=== PATIENT | female | born 1955 | race Caucasian/White ===

== ENCOUNTER 2016-09-26 18:33 | Emergency (ER) | payer OTHER ==
[2016-09-26] MEDS ORDERED: Lidocaine 2% with EPINEPHrine 1:100,000 20 ML MDV ONE ×2 (18:43→19:29)
[2016-09-26 18:48] VITALS: BP 148/76
[2016-09-26] MEDS ORDERED: Bacitracin/Neomycin/Polymyxin B Oint 0.9 GM U/D Packet ONE (19:20)
--- NOTE | 2016-09-26 19:27 | EDM.PDOC ---
ED HPI GENERAL MEDICAL PROBLEM - General Chief Complaint: Laceration Stated Complaint: left leg laceration Time Seen by Provider: 09/26/16 19:00 Source of Information: Reports: Patient History Limitations: Reports: No Limitations - History of Present Illness INITIAL COMMENTS - FREE TEXT/NARRATIVE: The patient presents with a laceration to her left anterior connolly. She was out working in the yard and stepped on a tree branch that swung up and cut her left leg. She denies other injuries or complaints. She reports her tetanus vaccination is up to date. 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: Dressing(s) Left Anterior Leg Pain Score (Numeric/FACES): 4 - Related Data Allergies Allergy/AdvReac Type Severity Reaction Status Date / Time No Known Allergies Allergy Verified 09/26/16 18:35 Home Meds: Home Meds ASA/Butalbital/Caffeine/Codein [Fiorinal with Codeine #3] 1 cap PO ASDIRECTED PRN 09/26/16 [History] Amitriptyline HCl [Amitriptyline HCl] 50 mg PO BEDTIME 09/26/16 [History] Chlorthalidone [Chlorthalidone] 25 mg PO DAILY 09/26/16 [History] Cyclobenzaprine HCl [Cyclobenzaprine HCl] 10 mg PO BEDTIME PRN 09/26/16 [History ] Diclofenac Sodium [IJD: Diclofenac Sodium] 75 mg PO DAILY 09/26/16 [History] Lisinopril [Lisinopril] 10 mg PO DAILY 09/26/16 [History] Venlafaxine HCl [Venlafaxine ER] 75 mg PO DAILY 09/26/16 [History] traMADol HCl [Tramadol HCl] 50 mg PO Q6HR PRN 09/26/16 [History] Past Medical History Cardiovascular History: Reports: Hypertension Musculoskeletal History: Reports: Back Pain, Chronic Neurological History: Reports: Migraines Social & Family History - Tobacco Use Smoking Status *Q: Never Smoker - Recreational Drug Use Recreational Drug Use: No ED ROS GENERAL - Review of Systems Review Of Systems: See Below ED EXAM, SKIN/RASH Exam: See Below Exam Limited By: No Limitations General Appearance: Alert, WD/WN, No Apparent Distress Eye Exam: Bilateral Eye: EOMI, Normal Fundi, Normal Inspection, PERRL Ears: Normal External Exam, Normal Canal, Hearing Grossly Normal, Normal TMs Nose: Normal Inspection, Normal Mucosa, No Blood Throat/Mouth: Normal Inspection, Normal Lips, Normal Teeth, Normal Gums, Normal Oropharynx, Normal Voice, No Airway Compromise Head: Atraumatic, Normocephalic Neck: Normal Inspection, Supple, Non-Tender, Full Range of Motion. No: Lymphadenopathy (L), Lymphadenopathy (R), Tender Lateral, Tender Midline Respiratory/Chest: No Respiratory Distress, Lungs Clear, Normal Breath Sounds, No Accessory Muscle Use, Chest Non-Tender Cardiovascular: Normal Peripheral Pulses, Regular Rate, Rhythm, No Edema, No Gallop, No Murmur, No Rub Peripheral Pulses: 2+: Posterior Tibial (L), Posterior Tibial (R), Dorsalis Pedis (L), Dorsalis Pedis (R) GI/Abdominal: Normal Bowel Sounds, Soft, Non-Tender, No Organomegaly, No Distention Rectal (Female) Exam: Normal Exam, Normal Rectal Tone Extremities: Normal Inspection, Normal Range of Motion, Non-Tender, No Pedal Edema, Normal Capillary Refill Neurological: Alert, Oriented, CN II-XII Intact, Normal Cognition, Normal Gait, Normal Reflexes, No Motor/Sensory Deficits Psychiatric: Normal Affect, Normal Mood Skin: Warm, Dry, Intact, Normal Color, No Rash, Other (2.5 cm linear laceration of anterior left connolly down to the fatty dermal layer. No active bleeding or gross contamination. No damage to vessels or nerves. ) Lymphatic: No Adenopathy Course - Vital Signs Last Recorded V/S: Last Vital Signs Temp 36.5 C 09/26/16 18:47 Pulse 76 09/26/16 18:47 Resp 16 09/26/16 18:47 BP 148/76 H 09/26/16 18:47 Pulse Ox 98 09/26/16 18:47 - Orders/Labs/Meds Meds: Medications Discontinued Medications Generic Name Dose Route Start Last Admin Trade Name Ramirezq PRN Reason Stop Dose Admin Lidocaine/Epinephrine Confirm 09/26/16 18:43 09/26/16 19:10 Xylocaine 2% With Epinephrine 1:100,000 Administered 09/26/16 18:44 20 ml Dose Administration 20 ml .ROUTE .STK-MED ONE Neomycin/Polymyxin/Bacitracin Confirm 09/26/16 19:20 Triple Antibiotic Oint Administered 09/26/16 19:21 Dose 1 each .ROUTE .STK-MED ONE Departure - Departure Time of Disposition: 19:32 Disposition: Home, Self-Care 01 Condition: Good Clinical Impression: Laceration of left lower leg without complication Qualifiers: Encounter type: initial encounter Qualified Code(s): S81.812A - Laceration without foreign body, left lower leg, initial encounter - Discharge Information Instructions: Laceration Care, Adult, Sutured Wound Care Referrals: Santana Bella JOB COMPOSITOR [Primary Care Provider] - Forms: ED Department Discharge Additional Instructions: 1. Wound cleansed with Betadine and anesthetized with 30 gauge 1/2" needle with 2% epinephrine with 1:100,000 epinephrine to total 5 mL. 2. Suture closure performed with 4-0 Ethilon sutures in interrupted fashion. 3. Wound cleansed after closure and Triple Antibiotic ointment applied followed by Telfa and tape. 4. Wound to stay covered and dry for 24 hours, then may remove dressing and shower and clean with mild soap. 5. OTC ibuprofen 400-600 mg every 6 hours as needed for pain. 6. Follow up in 7 days in clinic for suture removal or sooner if increased redness, swelling, pain, or drainage. - Assessment/Plan Assessment:: Laceration of left anterior connolly, 2.5 cm. Plan: 1. Wound cleansed with Betadine and anesthetized with 30 gauge 1/2" needle with 2% epinephrine with 1:100,000 epinephrine to total 5 mL. 2. Suture closure performed with 4-0 Ethilon sutures in interrupted fashion. 3. Wound cleansed after closure and Triple Antibiotic ointment applied followed by Telfa and tape. 4. Wound to stay covered and dry for 24 hours, then may remove dressing and shower and clean with mild soap. 5. OTC ibuprofen 400-600 mg every 6 hours as needed for pain. 6. Follow up in 7 days in clinic for suture removal or sooner if increased redness, swelling, pain, or drainage.
== END 2016-09-26 19:45 | disposition home or self-care (01) ==
LOC: LL.ED 18:33
DX: S81.812A Laceration without foreign body, left lower leg, initial encounter (principal); I10 Essential (primary) hypertension; G43.909 Migraine, unspecified, not intractable, without status migrainosus; Z79.899 Other long term (current) drug therapy; W45.8XXA Other foreign body or object entering through skin, initial encounter; Y92.096 Garden or yard of other non-institutional residence as the place of occurrence of the external cause
CPT/HCPCS: 12001; 99282

== ENCOUNTER 2020-08-25 07:53 | Observation (INO) | payer BC, OTHER ==
[2020-08-25] MEDS ORDERED: Sodium Chloride 0.9% 10 ML Syringe FLUSH PRN ×3 (08:12→12:07)
[2020-08-25] MEDS ORDERED: Ticagrelor 90 MG Tab PO ONE (08:12)
[2020-08-25] MEDS ORDERED: Famotidine 20 MG/2 ML SDV IVPUSH ONE (08:12)
[2020-08-25] MEDS ORDERED: Aspirin 81 MG Tab.Chew CHEW ONE (08:12)
--- NOTE | 2020-08-25 08:12 | EDM.PDOC ---
ED HPI GENERAL MEDICAL PROBLEM - General Chief Complaint: Cardiovascular Problem Stated Complaint: syncopal episode Time Seen by Provider: 08/25/20 08:10 Source of Information: Reports: Patient, Old Records ([facility] chart/EMR) History Limitations: Reports: No Limitations - History of Present Illness INITIAL COMMENTS - FREE TEXT/NARRATIVE: The patient was brought to the emergency room via private automobile by her friend for evaluation of dizziness and near syncopal episode, which occurred at work at about 7 AM this morning. Note that the patient denies any fall, injury, etc. with episodes similar to recurrent near syncopal episodes in the past. The patient did have some 8/10 epigastric and retrosternal chest pressure with no history of radiation, however associated with some diaphoresis and dizziness between 8:30 PM and 10:30 PM yesterday evening with no medications taken to this point. The patient did not take her morning medications. The patient denies any heart flutter, orthopnea, diaphoresis, paresthesias, recent decreased exercise tolerance, or any other anginal-type symptoms. She has had similar episodes during the last few weeks, however she denies any chest pain upon arrival to this facility. No recent history of other abdominal pain, nausea, diarrhea, melena, gross hematochezia, or any food intolerance, including fatty foods, etc. with 4 normal bowel movements during the last couple of days, including earlier this morning. She denies any gross hematuria, colic, or other UTI symptoms. The patient also denies any recent fever, cough, wheezing, dyspnea, etc.. No history of recent headaches, visual changes, diplopia, change in mental status, or other change in neurological status. Onset: Today, Sudden Onset Date: 08/24/20 Onset Time: 20:30 Duration: Intermittent, Resolved Prior to Arrival Location: Reports: Chest, Abdomen. Denies: Head, Face, Neck, Back, Pelvis, Upper Extremity, Left, Upper Extremity, Right, Radiates to Quality: Reports: Pressure, Same as Previous Episode Severity: Moderate Improves with: Reports: None Worsens with: Reports: None Context: Reports: Other (As above). Denies: Sick Contact, Trauma Associated Symptoms: Reports: Chest Pain, Diaphoresis, Syncope (Near syncope as above), Weakness (Generalized nonspecific). 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) Sternum Pain Score (Numeric/FACES): 3 - Related Data Allergies Allergy/AdvReac Type Severity Reaction Status Date / Time No Known Allergies Allergy Verified 08/25/20 07:55 Home Meds: Home Meds Chlorthalidone 25 mg PO DAILY 09/26/16 [History] Cyclobenzaprine HCl 10 mg PO BEDTIME PRN 09/26/16 [History] Lisinopril 10 mg PO DAILY@20 09/26/16 [History] Amitriptyline HCl 75 mg PO BEDTIME 08/25/20 [History] Codeine/Butalbital/ASA/Caffein [Ascomp with Codeine] 1 each PO DAILY PRN 08/25/20 [History] DULoxetine HCl [Cymbalta] 60 mg PO DAILY 08/25/20 [History] Past Medical History HEENT History: Reports: Allergic Rhinitis, Impaired Vision, Other (See Below). Denies: Cataract, Glaucoma, Hard of Hearing, Macular Degeneration, Otitis Media, Retinal Detachment, Sinusitis Other HEENT History: Torus palatinum. Cardiovascular History: Reports: Hypertension, Syncope, Other (See Below). Denies: Afib, Aneurysm, Arrhythmia, Blood Clots/VTE/DVT, CAD, Cardiomyopathy, Heart Failure, Heart Murmur, High Cholesterol, SD, PVD Other Cardiovascular History: Near syncopal episode since about 2017 with a total of 4 previous episodes and true syncopal episode in about 2018. Respiratory History: Reports: Asthma, Bronchitis, Recurrent. Denies: COPD, Intubation, Difficult, Intubation, Previous, PE, Pneumonia, Recurrent, Pneumothorax, Pulmonary Fibrosis, Sleep Apnea, TB Gastrointestinal History: Reports: Cholelithiasis, GERD. Denies: Celiac Disease, Chronic Constipation, Chronic Diarrhea, GI Bleed, Hepatitis, Hiatal Hernia, Inflammatory Bowel Disease, Irritable Bowel Syndrome, Jaundice, Pancreatitis, PUD Genitourinary History: Reports: None. 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 Denies: Endometriosis, Polycystic Ovaries, Spontaneous : 2 Para: 3 LMP (Approximate): Other (See Below) Other SALES PROFESSIONAL BILINGUAL History: Surgical menopause at age 51 secondary to dysfunctional uterine bleeding. Full term with initial with secondary to twins at 37 weeks gestation with second , otherwise no complications during pregnancies or deliveries. Musculoskeletal History: Reports: Arthritis, Back Pain, Chronic, Neck Pain, Chronic, Osteoarthritis. Denies: Amputation, Fracture, Gout, RA, SLE Neurological History: Reports: Headaches, Chronic, Migraines, Neuropathy, Peripheral. Denies: Cerebral Aneurysms, Concussion, CVA, Head Trauma, MS, Parkinson's, Seizure, TIA, Vertigo Psychiatric History: Reports: Anxiety, Depression. Denies: Abuse, Victim of, ADD, ADHD, Addiction, Psych Hospitalization(s), PTSD, Suicide Attempt, Suicidal Ideation Endocrine/Metabolic History: Reports: Obesity/BMI 30+. Denies: Diabetes, Gestational, Diabetes, Type I, Diabetes, Type II, Diabetes Mellitus, Type 3c, Hypothyroidism, IDDM Hematologic History: Reports: None. Denies: Anemia, Blood Transfusion(s), Iron Deficiency Immunologic History: Reports: None. Denies: AIDS, HIV, SLE Oncologic (Cancer) History: Reports: None. Denies: Basal Cell Carcinoma, Breast, Cervix, Colon, Hodgkin's Lymphoma, Leukemia, Lymphoma, Malignant Melanoma, Non-Hodgkin's Lymphoma, Ovarian, Squamous Cell Carcinoma, Uterine Dermatologic History: Reports: None. Denies: Eczema, Psoriasis - Infectious Disease History Infectious Disease History: Reports: Chicken Pox, Measles, Mumps, Novel Coronavirus (Covid infection in February 2020 with subsequent J & J immunization and June 2020.). Denies: C-Difficile, Meningitis, Mononucleosis, MRSA, Pertussis (Whooping Cough), Rheumatic Fever, Rubella, Scarlet Fever, Shingles, TB, VRE - Past Surgical History Head Surgeries/Procedures: Reports: None HEENT Surgical History: Reports: Oral Surgery, Other (See Below). Denies: Adenoidectomy, Cataract Surgery, Eye Surgery, Laser Surgery, LASIK, Myringotomy w Tube(s), Naso-Sinus Surgery, Tonsillectomy Other HEENT Surgeries/Procedures: Anita teeth extraction x4 in her 20s. Cardiovascular Surgical History: Reports: None. Denies: Varicose Respiratory Surgical History: Reports: None. Denies: Thoracentesis GI Surgical History: Reports: Cholecystectomy, Other (See Below). Denies: Appendectomy, Colonoscopy, EGD, Hernia, Abdominal, Hernia, Inguinal, Hernia Repair/Other Other GI Surgeries/Procedures: Laparoscopic cholecystectomy 1996. Female Surgical History: Reports: Section, Hysterectomy, Salpingo- Oophorectomy, Tubal Ligation, Other (See Below). Denies: D&C Other Female Surgeries/Procedures: Bilateral tubal ligation at age 39. Complete hysterectomy with bilateral salpingo-oophorectomy at age 51 secondary to dysfunctional uterine bleeding/fibroids. Full-term secondary to twins as above. Endocrine Surgical History: Reports: None. Denies: Thyroid Biopsy Neurological Surgical History: Reports: None. Denies: C-Spine, Discectomy, Laminectomy, Lumbar Spine, Sacral Spine, Spinal Fusion, Thoracic Spine, Vertebroplasty Musculoskeletal Surgical History: Reports: None. Denies: Arthroscopic Procedure, Carpal Tunnel, Ganglion Cyst, ORIF, Shoulder Surgery Oncologic Surgical History: Reports: None Dermatological Surgical History: Reports: None - Past Imaging History Past Imaging History: Reports: Mammogram (Last on 01/19/2019.). Denies: Cardiac Echo, Stress Testing Social & Family History - Family History HEENT: Reports: Cataract, Other (See Below). Denies: Glaucoma, Macular Degeneration, Retinal Detachment Other HEENT Family History: Mother with cataracts. Cardiac: Reports: Hypertension, Other (See Below). Denies: Afib, Aneurysm, Arrhythmia, Blood Clots/VTE/DVT, Bypass, CAD, Heart Failure, High Cholesterol, SD, PVD/COD, Syncope Other Cardiac Family History: Hypertension in parents. Respiratory: Reports: None. Denies: Asthma, COPD, PE, Pneumothorax, Sleep Apnea GI: Reports: None. Denies: Celiac Disease, Cholelithiasis, Colon Polyps, GERD, GI bleed, Inflammatory Bowel Disease, Irritable Bowel Syndrome, PUD : Reports: None. Denies: Renal Calculus, Renal Disease/Insufficiency OBGYN: Reports: None. Denies: Dysfunctional uterine bleeding, Endometriosis, Recurrent Spontaneous Musculoskeletal: Reports: None. Denies: Arthritis, Gout, Osteoarthritis, RA, SLE Neurological: Reports: Cerebral Aneurysms, CVA, Migraines, Other (See Below). Denies: Alzheimers Disease, Dementia, MS, Parkinson's, Seizure, TIA Other Neurological Family History: Mother with fatal organic brain syndrome at age 86. Father with fatal hemorrhagic CVA secondary to a cerebral aneurysm at age 43. Migraines headaches in sister. Psychiatric: Reports: None. Denies: Abuse, Victim of, ADD, ADHD, Anxiety, Depression, Psych Hospitalization(s), PTSD, Suicide Attempt Endocrine/Metabolic: Reports: Diabetes, type II, Other (See Below). Denies: Diabetes, Gestational, Diabetes, Type I, Diabetes Mellitus, Type 3c, Hypothyroidism, IDDM Other Endocrine/Metabolic Family History: Maternal grandmother and mother with AODM. Hematologic: Reports: None. Denies: Anemia, SLE Immunologic: Reports: None. Denies: AIDS, HIV, SLE Dermatologic: Reports: None. Denies: Eczema, Psoriasis Oncologic: Reports: None. Denies: Cervix, Colon, Hodgkin's Lymphoma, Leukemia, Lymphoma, Non-Hodgkin's Lymphoma, Ovarian, Skin, Uterine - Tobacco Use Tobacco Use Status *Q: Former Tobacco User Tobacco Use Within Last Twelve Months: No Years of Tobacco use: 16 Packs/Tins Daily: 0.5 Packs/Tins Daily Comment: Stop smoking in 1989, i.e., between ages 18 and 34. Used Tobacco, but Quit: Yes Smoking Cessation Information Provided To Patient: No Second Hand Smoke Exposure: No Second Hand Smoke Education Provided: No - Caffeine Use Caffeine Use: Reports: Coffee (1 cup/day), Soda (2 sodas per day). Denies: Energy Drinks, Tea - Alcohol Use Alcohol Use History: Yes Days Per Week of Alcohol Use: 3 Number of Drinks Per Day: 2 Number of Drinks Per Day Comment: Usually beer. No previous DWIs, problems with alcohol abuse, etc. Total Drinks Per Week: 6 Alcohol Use in Last Twelve Months: Yes - Recreational Drug Use Recreational Drug Use: No Drug Use in Last 12 Months: No Recreational Drug Type: Denies: Amphetamines (Speed), Cocaine, Heroin, Inhalants (Glues, Solvents, Aerosols), LSD (Acid), Marijuana/Hashish, Methamphetamine, Morphine, Oxycodone - Living Situation & Occupation Living situation: Reports: (1991, 3 children), with Family ( and son) Occupation: Employed ([employer]) ED ROS GENERAL - Review of Systems Review Of Systems: Comprehensive ROS is negative, except as noted in HPI. ED EXAM, GENERAL - Physical Exam Exam: See Below Exam Limited By: No Limitations General Appearance: Alert, WD/WN, No Apparent Distress Eye Exam: Bilateral Eye: EOMI, Normal Fundi, Normal Inspection (Patient is wearing glasses. No vertigo or nystagmus), PERRL Ears: Normal External Exam, Normal Canal, Hearing Grossly Normal, Normal TMs Nose: Normal Inspection, Normal Mucosa, No Blood Throat/Mouth: Normal Inspection, Normal Lips, Normal Teeth, Normal Gums, Normal Oropharynx, Normal Voice, No Airway Compromise, Other (1-2 cm torus palatinum). No: Dysphagia, Perioral Cyanosis Head: Atraumatic, Normocephalic. No: Facial Swelling, Facial Tenderness, Sinus Tenderness Neck: Normal Inspection, Supple, Non-Tender, Full Range of Motion. No: Carotid Bruit, Lymphadenopathy (L), Lymphadenopathy (R), Thyromegaly Respiratory/Chest: No Respiratory Distress, Lungs Clear, Normal Breath Sounds, No Accessory Muscle Use, Chest Non-Tender. No: Pleural Rub, Retractions Cardiovascular: Normal Peripheral Pulses, Regular Rate, Rhythm, No Edema, No Gallop, No JVD, No Murmur, No Rub. No: Gallop/S3, Gallop/S4, Friction Rub Peripheral Pulses: 2+: Radial (L), Radial (R), Dorsalis Pedis (L), Dorsalis Pedis (R) GI/Abdominal: Normal Bowel Sounds, Soft, Non-Tender, No Organomegaly, No Distention, No Abnormal Bruit, No Mass, Pelvis Stable, Other (Obese). No: Guarding (Female) Exam: Deferred Rectal (Female) Exam: Deferred Back Exam: Full Range of Motion, Muscle Spasm (Mild lumbar region bilaterally), Paraspinal Tenderness (Mild lumbar region bilaterally). No: CVA Tenderness (L), CVA Tenderness (R), Vertebral Tenderness Extremities: Normal Inspection, Normal Range of Motion, Non-Tender, No Pedal Edema, Normal Capillary Refill. No: Jerad's Sign Neurological: Alert, Oriented, CN II-XII Intact, Normal Cognition, Normal Gait, Normal Reflexes (Negative Babinski's), No Motor/Sensory Deficits, Other (Borderline orthostasis) Psychiatric: Normal Affect, Normal Mood Skin Exam: Warm, Dry, Intact, Normal Color, No Rash. No: Diaphoretic, Wound/Incision Lymphatic: No Adenopathy #1 Interpretation EKG Date: 08/25/20 Time: 08:31 Rhythm: NSR Rate (Beats/Min): 76 [place]: Normal P-Wave: Enlarged (Mild diffuse biphasic P waves) QRS: Normal (0.09 seconds) ST-T: Other (T wave inversion in lead V1 with nonspecific ST changes in V1V2) QT: Normal RI/PQ Interval: 0.17 seconds with pulmonary hypertension by EKG. Comparison: NA - No Prior EKG EKG Interpretation Comments: 1. Questionable anterior wall cardiac ischemia 2. Left atrial enlargement 3. Pulmonary hypertension by EKG Course - Vital Signs Last Recorded V/S: Last Vital Signs Temp 36.2 C 08/25/20 08:00 Pulse 77 08/25/20 10:14 Resp 18 08/25/20 10:14 BP 111/60 08/25/20 10:14 Pulse Ox 100 08/25/20 10:14 Vital Signs - 24 hr 08/25/20 08/25/20 08/25/20 07:56 08:00 08:05 Temperature [ 36.2 C 36.2 C Temporal] Pulse, 82 75 80 Peripheral [ Right Pulse Oximetry] Respiratory 15 16 18 Rate Blood Pressure 97/42 L 80/50 L 77/43 L [Left Upper Arm ] O2 Sat by Pulse 99 95 96 Oximetry 08/25/20 08/25/20 08/25/20 08:15 08:30 08:45 Temperature [ Temporal] Pulse, 77 78 80 Peripheral [ Right Pulse Oximetry] Respiratory 16 16 17 Rate Blood Pressure 92/62 94/60 86/50 L [Left Upper Arm ] O2 Sat by Pulse 99 99 99 Oximetry 08/25/20 08/25/20 08/25/20 09:00 09:15 09:30 Temperature [ Temporal] Pulse, 80 84 78 Peripheral [ Right Pulse Oximetry] Respiratory 19 18 17 Rate Blood Pressure 106/64 110/72 106/55 L [Left Upper Arm ] O2 Sat by Pulse 100 100 100 Oximetry 08/25/20 08/25/20 09:45 10:14 Temperature [ Temporal] Pulse, 78 77 Peripheral [ Right Pulse Oximetry] Respiratory 16 18 Rate Blood Pressure 112/66 111/60 [Left Upper Arm ] O2 Sat by Pulse 99 100 Oximetry - Orders/Labs/Meds Orders: Active Orders 24 hr Category Date Time Status Cardiac Monitoring [RC] . DIRECTED Care 08/25/20 08:12 Active EKG Documentation Completion [RC] ASDIRECTED Care 08/25/20 08:12 Active Oxygen Therapy, ED [RC] PRN Care 08/25/20 08:12 Active Peripheral IV Care [RC] . DIRECTED Care 08/25/20 08:12 Active Peripheral IV Care [RC] . DIRECTED Care 08/25/20 08:17 Active Pulse Oximetry [RC] CONTINUOUS Care 08/25/20 08:12 Active Up With Assistance [RC] PFP Care 08/25/20 08:12 Active Vital Signs [RC] PFP Care 08/25/20 08:12 Active Nothing per Oral Now Diet [DIET] Diet 08/25/20 Breakfast Active Chest 1V Frontal [CR] Stat Exams 08/25/20 08:12 Taken Chest PE [Ang Chest] [CT] Stat Exams 08/25/20 09:00 Taken CULTURE BLOOD [BC] Stat Lab 08/25/20 08:01 Received CULTURE BLOOD [BC] Stat Lab 08/25/20 09:01 Received Iopamidol [[id number] (76%)] Med 08/25/20 13:00 Once 100 ml IVPUSH ONETIME ONE Lactated Ringers [Ringers, Lactated] 1,000 ml Med 08/25/20 09:15 Active IV .BOLUS Sodium Chloride 0.9% [Saline Flush] Med 08/25/20 08:12 Active 10 ml FLUSH ASDIRECTED PRN Sodium Chloride 0.9% [Saline Flush] Med 08/25/20 08:17 Active 10 ml FLUSH ASDIRECTED PRN Blood Culture x2 Reflex Set [OM.PC] Urgent Oth 08/25/20 09:01 Ordered Obtain Past Medical Record [OM.PC] Urgent Oth 08/25/20 08:12 Active Peripheral IV Insertion Adult [OM.PC] Routine Oth 08/25/20 08:17 Ordered Peripheral IV Insertion Adult [OM.PC] Stat Oth 08/25/20 08:12 Ordered Resuscitation Status Stat Resus Stat 08/25/20 08:12 Ordered Medication Orders Lactated Ringer's (Ringers, Lactated) 1,000 mls @ 100 mls/hr IV .BOLUS ONE Stop: 08/25/20 19:14 Last Admin: 08/25/20 09:24 Dose: 100 mls/hr Documented by: KETAN Iopamidol (Iopamidol 755 Mg/Ml 100 Ml Bottle) 100 ml IVPUSH ONETIME ONE Stop: 08/25/20 13:01 Last Admin: 08/25/20 09:25 Dose: 100 ml Documented by: MAGUI Sodium Chloride (Sodium Chloride 0.9% 10 Ml Syringe) 10 ml FLUSH ASDIRECTED PRN PRN Reason: Keep Vein Open Last Admin: 08/25/20 08:35 Dose: 10 ml Documented by: KETAN Sodium Chloride (Sodium Chloride 0.9% 10 Ml Syringe) 10 ml FLUSH ASDIRECTED PRN PRN Reason: Keep Vein Open Labs: Laboratory Tests 08/25/20 08/25/20 08/25/20 Range/Units 07:54 07:54 07:54 WBC 9.7 (4.0-10.2) K/uL RBC 4.93 (3.77-5.09) M/uL Hgb 15.6 H (11.7-15.5) g/dL Hct 43.7 (34.0-46.0) % MCV 88.6 D (84.0-98.0) fL MCH 31.6 (28.2-33.3) pg MCHC 35.7 (31.7-36.0) g/dL RDW 12.5 (11.2-14.1) % Plt Count 226 (150-350) K/uL Neut % (Auto) 68.9 (45.0-80.0) % Lymph % (Auto) 20.8 (10.0-50.0) % [place] % (Auto) 7.3 (2.0-14.0) % Eos % (Auto) 2.4 (0.0-5.0) % Baso % (Auto) 0.6 (0.0-2.0) % Neut # (Auto) 6.65 (1.40-7.00) K/uL Lymph # (Auto) 2.01 (0.50-3.50) K/uL [place] # (Auto) 0.71 (0.00-1.00) K/uL Eos # (Auto) 0.23 (0.00-0.50) K/uL Baso # (Auto) 0.06 (0.00-0.20) K/uL PT 10.0 (9.5-12.0) SEC INR 1.0 APTT 20.3 L (24.5-32.8) SEC D-Dimer, Quantitative > 5000 H (0-400) ng/mL Sodium (136-145) mmol/L Potassium (3.5-5.1) mmol/L Chloride (98-107) mmol/L Carbon Dioxide (21.0-32.0) mmol/L BUN (7-18) mg/dL Creatinine (0.51-1.17) mg/dL Est Cr Clr Drug Dosing Estimated GFR (MDRD) mL/min Glucose (70-99) mg/dL Lactic Acid (0.4-2.0) mmol/L Uric Acid (2.6-7.2) mg/dL Calcium (8.5-10.1) mg/dL Magnesium (1.8-2.4) mg/dL Total Bilirubin (0.2-1.0) mg/dL AST (15-37) U/L ALT (12-78) U/L Alkaline Phosphatase (46-116) IU/L Creatine Kinase (26-308) U/L Creatine Kinase Index (0.0-2.5) % CK-MB (CK-2) (0.00-3.60) ng/mL Troponin I (0.000-0.056) ng/mL NT-Pro-B Natriuret Pep (0-125) pg/mL Total Protein (6.4-8.2) g/dL Albumin (3.4-5.0) g/dL TSH, Ultra Sensitive (0.358-3.740) mIU/mL SARS-CoV-2 RNA (STEVO) (NEGATIVE) 08/25/20 08/25/20 08/25/20 Range/Units 07:54 07:54 09:30 WBC (4.0-10.2) K/uL RBC (3.77-5.09) M/uL Hgb (11.7-15.5) g/dL Hct (34.0-46.0) % MCV (84.0-98.0) fL MCH (28.2-33.3) pg MCHC (31.7-36.0) g/dL RDW (11.2-14.1) % Plt Count (150-350) K/uL Neut % (Auto) (45.0-80.0) % Lymph % (Auto) (10.0-50.0) % [place] % (Auto) (2.0-14.0) % Eos % (Auto) (0.0-5.0) % Baso % (Auto) (0.0-2.0) % Neut # (Auto) (1.40-7.00) K/uL Lymph # (Auto) (0.50-3.50) K/uL [place] # (Auto) (0.00-1.00) K/uL Eos # (Auto) (0.00-0.50) K/uL Baso # (Auto) (0.00-0.20) K/uL PT (9.5-12.0) SEC INR APTT (24.5-32.8) SEC D-Dimer, Quantitative (0-400) ng/mL Sodium 139 (136-145) mmol/L Potassium 3.0 L (3.5-5.1) mmol/L Chloride 99 (98-107) mmol/L Carbon Dioxide 27.9 (21.0-32.0) mmol/L BUN 22 H (7-18) mg/dL Creatinine 1.09 (0.51-1.17) mg/dL Est Cr Clr Drug Dosing TNP Estimated GFR (MDRD) 51 mL/min Glucose 142 H (70-99) mg/dL Lactic Acid 3.1 H (0.4-2.0) mmol/L Uric Acid 7.1 (2.6-7.2) mg/dL Calcium 9.4 (8.5-10.1) mg/dL Magnesium 1.8 (1.8-2.4) mg/dL Total Bilirubin 0.8 (0.2-1.0) mg/dL AST 83 H (15-37) U/L ALT 82 H (12-78) U/L Alkaline Phosphatase 101 (46-116) IU/L Creatine Kinase 139 (26-308) U/L Creatine Kinase Index 1.2 (0.0-2.5) % CK-MB (CK-2) 1.60 (0.00-3.60) ng/mL Troponin I 0.000 (0.000-0.056) ng/mL NT-Pro-B Natriuret Pep 110 (0-125) pg/mL Total Protein 7.5 (6.4-8.2) g/dL Albumin 4.1 (3.4-5.0) g/dL TSH, Ultra Sensitive 5.228 H (0.358-3.740) mIU/mL SARS-CoV-2 RNA (STEVO) Negative (NEGATIVE) Meds: Medications Generic Name Dose Route Start Last Admin Trade Name Ramirezq PRN Reason Stop Dose Admin Lactated Ringer's 1,000 mls @ 100 mls/hr 08/25/20 09:15 08/25/20 09:24 Ringers, Lactated IV 08/25/20 19:14 100 mls/hr .BOLUS ONE Administration Iopamidol 100 ml 08/25/20 13:00 08/25/20 09:25 Iopamidol 755 Mg/Ml 100 Ml Bottle IVPUSH 08/25/20 13:01 100 ml ONETIME ONE Administration Sodium Chloride 10 ml 08/25/20 08:12 08/25/20 08:35 Sodium Chloride 0.9% 10 Ml Syringe FLUSH 10 ml ASDIRECTED PRN Administration Keep Vein Open Sodium Chloride 10 ml 08/25/20 08:17 Sodium Chloride 0.9% 10 Ml Syringe FLUSH ASDIRECTED PRN Keep Vein Open Discontinued Medications Generic Name Dose Route Start Last Admin Trade Name Ramirezq PRN Reason Stop Dose Admin Aspirin 324 mg 08/25/20 08:12 08/25/20 08:28 Aspirin 81 Mg Tab.Chew CHEW 08/25/20 08:13 324 mg ONETIME ONE Administration Ceftriaxone Sodium 2 gm 08/25/20 09:02 08/25/20 09:09 Ceftriaxone 2 Gm Vial IVPUSH 08/25/20 09:03 2 gm ONETIME ONE Administration Famotidine 40 mg 08/25/20 08:12 08/25/20 08:29 Famotidine 20 Mg/2 Ml Sdv IVPUSH 08/25/20 08:13 40 mg ONETIME ONE Administration Sodium Chloride 1,000 mls @ 999 mls/hr 08/25/20 08:14 08/25/20 08:10 Normal Saline IV 08/25/20 09:14 999 mls/hr .BOLUS ONE Administration Lactated Ringer's 1,000 mls @ 999 mls/hr 08/25/20 08:45 08/25/20 08:53 Ringers, Lactated IV 08/25/20 09:45 999 mls/hr .BOLUS ONE Administration Lactated Ringer's 1,000 mls @ 999 mls/hr 08/25/20 08:46 08/25/20 08:54 Ringers, Lactated IV 08/25/20 09:46 999 mls/hr .BOLUS ONE Administration Lactated Ringer's 1,000 mls @ 999 mls/hr 08/25/20 09:15 08/25/20 09:26 Ringers, Lactated IV 08/25/20 10:15 Not Given .BOLUS ONE Iopamidol Confirm 08/25/20 09:14 Iopamidol 755 Mg/Ml 100 Ml Bottle Administered 08/25/20 09:15 Dose 100 ml .ROUTE .STK-MED ONE Potassium Chloride 40 meq 08/25/20 08:46 08/25/20 08:55 Potassium Chloride 20 Meq Tab.Er PO 08/25/20 08:47 40 meq ONETIME ONE Administration Ticagrelor 180 mg 08/25/20 08:12 08/25/20 08:28 Ticagrelor 90 Mg Tab PO 08/25/20 08:13 180 mg ONETIME ONE Administration - Radiology Interpretation Free Text/Narrative:: healthcare network pricing consultant shows normal sinus rhythm in the 70s80s with no ectopy or ar rhythmia. Chest x-ray, portable, shows mild to moderate pulmonary obstructive disease with no cardiomegaly, CHF, pulmonary infiltrates, pneumothorax, etc. Telephone consultation at 10:07 AM with the radiology department at [facility]. Preliminary verbal report of CTA of the chest using PE protocol was negative for PE with incidental finding of mild common bile duct dilatation likely secondary to her previous laparoscopic cholecystectomy. CT Results Date: 08/25/20 CT Results Time: 10:07 Departure - Departure Time of Disposition: 11:15 Disposition: Refer to Observation Condition: Fair Clinical Impression: D-dimer, elevated, Hypokalemia, Mixed anxiety depressive disorder, Peptic reflux disease, Elevated LFTs, Near syncope Hypotension Qualifiers: Hypotension type: other hypotension type Qualified Code(s): I95.89 - Other hypotension Chest pain Qualifiers: Chest pain type: precordial pain Qualified Code(s): R07.2 - Precordial pain Hypertension Qualifiers: Hypertension type: essential hypertension Qualified Code(s): I10 - Essential (primary) hypertension Osteoarthritis Qualifiers: Osteoarthritis location: multiple joints Osteoarthritis type: primary Qualified Code(s): M89.49 - Other hypertrophic osteoarthropathy, multiple sites Asthma Qualifiers: Asthma severity: mild Asthma persistence: intermittent Asthma complication type: uncomplicated Qualified Code(s): J45.20 - Mild intermittent asthma, uncomplicated Referrals: Henrietta Varela NP [Primary Care Provider] - Forms: ED Department Discharge Care Plan Goals: See plan Sepsis Event Note (ED) - Evaluation Sepsis Screening Result: No Definite Risk - Focused Exam Vital Signs: Vital Signs Temp Pulse Resp BP Pulse Ox 08/25/20 10:14 77 18 111/60 100 08/25/20 09:45 78 16 112/66 99 08/25/20 09:30 78 17 106/55 L 100 08/25/20 09:15 84 18 110/72 100 08/25/20 09:00 80 19 106/64 100 08/25/20 08:45 80 17 86/50 L 99 08/25/20 08:30 78 16 94/60 99 08/25/20 08:15 77 16 92/62 99 08/25/20 08:05 80 18 77/43 L 96 08/25/20 08:00 36.2 C 75 16 80/50 L 95 08/25/20 07:56 36.2 C 82 15 97/42 L 99 - Problem List & Annotations (1) Chest pain SNOMED Code(s): 42826058 Code(s): R07.9 - CHEST PAIN, UNSPECIFIED Status: Acute Priority: High Current Visit: Yes Onset Date: 08/25/20 Annotation/Comment:: Chest pain not present on patient's arrival to our emergency room with no recurrence during her initial care. Chest pain protocol was initiated immediately upon patient's arrival, however. Initiate standard rule out SD orders. Cardiology consultation depending on her clinical course. Echocardiogram is advisable secondary to her history of recurrent syncope. In addition, recommend activity restrictions at discharge and scheduling a Cardiolite stress test with me in this facility next week. Qualifiers: Chest pain type: precordial pain Qualified Code(s): R07.2 - Precordial pain (2) Near syncope SNOMED Code(s): 310848550 Code(s): R55 - SYNCOPE AND COLLAPSE Status: Acute Priority: High Current Visit: Yes Onset Date: 08/25/20 Annotation/Comment:: Note aggressive hydration required during her initial emergency room care. The ER nurse did initiate a normal saline 1 L IV bolus prior to my arrival to this facility with manual blood pressures required for patient care. Normal saline changed to lactated Ringer's as below. Secondary to persistent hypotension patient did require a second peripheral IV access with initial IV bolus of LR x2 with a total of 2000 mL of IV fluids given prior to decreasing her LR to 100 cc/h. (3) D-dimer, elevated SNOMED Code(s): 466422478 Code(s): R79.89 - OTHER SPECIFIED ABNORMAL FINDINGS OF BLOOD CHEMISTRY Status: Acute Priority: High Current Visit: Yes Onset Date: 08/25/20 Annotation/Comment:: CTA of the chest results as above. Apparently no evidence of dissecting thoracic aortic aneurysm, etc.. Note previous history of Covid infection as above. Initiate subcu Lovenox therapy at VTE dose. Ultrasound is not available in this facility until 08/28/2020. Consider echocardiogram with concomitant venous Doppler studies of the lower extremities on 08/29 after hospital discharge. (4) Hypotension SNOMED Code(s): 47898437 Code(s): I95.9 - HYPOTENSION, UNSPECIFIED Status: Acute Priority: High Current Visit: Yes Onset Date: 08/25/20 Annotation/Comment:: Significant hypotension with secondary near syncope as above. Aggressive IV hydration as ab ove. Manual blood pressure checks were required for accurate care. Qualifiers: Hypotension type: other hypotension type Qualified Code(s): I95.89 - Other hypotension (5) Asthma SNOMED Code(s): 342923514 Code(s): J45.909 - UNSPECIFIED ASTHMA, UNCOMPLICATED Status: Chronic Priority: Medium Current Visit: Yes Annotation/Comment:: No recent fever or bronchitic type symptoms. Note previous Covid infection in February 2020 with subsequent J&J immunization in July 2020. Patient did get an influenza booster this season. Qualifiers: Asthma severity: mild Asthma persistence: intermittent Asthma complication type: uncomplicated Qualified Code(s): J45.20 - Mild intermittent asthma, uncomplicated (6) Elevated LFTs SNOMED Code(s): 396480210 Code(s): R79.89 - OTHER SPECIFIED ABNORMAL FINDINGS OF BLOOD CHEMISTRY Status: Acute Priority: Medium Current Visit: Yes Onset Date: 08/25/20 Annotation/Comment:: Possibly secondary to fatty liver. Consider abdominal ultrasound, etc. after discharge depending on her clinical course. (7) Hypertension SNOMED Code(s): 51633719 Code(s): I10 - ESSENTIAL (PRIMARY) HYPERTENSION Status: Chronic Priority: Medium Current Visit: Yes Annotation/Comment:: Previously under good control, however no significant hypotension at this time as above. Qualifiers: Hypertension type: essential hypertension Qualified Code(s): I10 - Essential (primary) hypertension (8) Hypokalemia SNOMED Code(s): 86770692 Code(s): E87.6 - HYPOKALEMIA Status: Acute Priority: High Current Visit: Yes Onset Date: 08/25/20 Annotation/Comment:: Previous initiated normal saline IV bolus was discontinued after receiving blood test results with initiation of IV lactated Ringer's IV bolus x2 and additional oral potassium given as above. (9) Mixed anxiety depressive disorder SNOMED Code(s): 914503960 Code(s): F41.8 - OTHER SPECIFIED ANXIETY DISORDERS Status: Chronic Priority: Medium Current Visit: Yes Annotation/Comment:: Stable by history (10) Osteoarthritis SNOMED Code(s): 616349794 Code(s): M19.90 - UNSPECIFIED OSTEOARTHRITIS, UNSPECIFIED SITE Status: Chronic Priority: Medium Current Visit: Yes Annotation/Comment:: Stable by history with exception of persistent chronic low back pain Qualifiers: Osteoarthritis location: multiple joints Osteoarthritis type: primary Qualified Code(s): M89.49 - Other hypertrophic osteoarthropathy, multiple sites (11) Peptic reflux disease SNOMED Code(s): 447452864 Code(s): K21.9 - GASTRO-ESOPHAGEAL REFLUX DISEASE WITHOUT ESOPHAGITIS Status: Chronic Priority: Medium Current Visit: Yes Annotation/Comment:: No evidence of acute GI bleed with high-dose IV Pepcid given as GI prophylaxis. - Problem List Review Problem List Initiated/Reviewed/Updated: Yes - My Orders Last 24 Hours: My Active Orders 08/25/20 Breakfast Nothing per Oral Now Diet [DIET] 08/25/20 08:01 CULTURE BLOOD [BC] Stat 08/25/20 08:12 Cardiac Monitoring [RC] . DIRECTED EKG Documentation Completion [RC] ASDIRECTED Oxygen Therapy, ED [RC] PRN Peripheral IV Care [RC] . DIRECTED Pulse Oximetry [RC] CONTINUOUS Up With Assistance [RC] PFP Vital Signs [RC] PFP Chest 1V Frontal [CR] Stat Sodium Chloride 0.9% [Saline Flush] 10 ml FLUSH ASDIRECTED PRN Obtain Past Medical Record [OM.PC] Urgent Peripheral IV Insertion Adult [OM.PC] Stat Resuscitation Status Stat 08/25/20 08:17 Peripheral IV Care [RC] . DIRECTED Sodium Chloride 0.9% [Saline Flush] 10 ml FLUSH ASDIRECTED PRN Peripheral IV Insertion Adult [OM.PC] Routine 08/25/20 09:00 Chest PE [Ang Chest] [CT] Stat 08/25/20 09:01 CULTURE BLOOD [BC] Stat Blood Culture x2 Reflex Set [OM.PC] Urgent 08/25/20 09:15 Lactated Ringers [Ringers, Lactated] 1,000 ml IV .BOLUS 08/25/20 13:00 Iopamidol [Isovue-370 (76%)] 100 ml IVPUSH ONETIME ONE - Assessment/Plan Admission H&P: Please use this note as an admission H&P Last 24 Hours: My Active Orders 08/25/20 Breakfast Nothing per Oral Now Diet [DIET] 08/25/20 08:01 CULTURE BLOOD [BC] Stat 08/25/20 08:12 Cardiac Monitoring [RC] . DIRECTED EKG Documentation Completion [RC] ASDIRECTED Oxygen Therapy, ED [RC] PRN Peripheral IV Care [RC] . DIRECTED Pulse Oximetry [RC] CONTINUOUS Up With Assistance [RC] PFP Vital Signs [RC] PFP Chest 1V Frontal [CR] Stat Sodium Chloride 0.9% [Saline Flush] 10 ml FLUSH ASDIRECTED PRN Obtain Past Medical Record [OM.PC] Urgent Peripheral IV Insertion Adult [OM.PC] Stat Resuscitation Status Stat 08/25/20 08:17 Peripheral IV Care [RC] . DIRECTED Sodium Chloride 0.9% [Saline Flush] 10 ml FLUSH ASDIRECTED PRN Peripheral IV Insertion Adult [OM.PC] Routine 08/25/20 09:00 Chest PE [Ang Chest] [CT] Stat 08/25/20 09:01 CULTURE BLOOD [BC] Stat Blood Culture x2 Reflex Set [OM.PC] Urgent 08/25/20 09:15 Lactated Ringers [Ringers, Lactated] 1,000 ml IV .BOLUS 08/25/20 13:00 Iopamidol [Isovue-370 (76%)] 100 ml IVPUSH ONETIME ONE Assessment:: As above Plan: As above. Extensive precautions were given to the patient and her son, who are in agreement with the treatment plan. The patient's condition is stable enough for observation status and general supervision. Randa graham physician assumes care in the a.m.
[2020-08-25] MEDS ORDERED: Sodium Chloride 0.9% 1,000 ML IV ONE (08:14)
[2020-08-25 08:27] LABS: PTT,PARTIAL THROMBOPLSTIN TIME 20.3 SEC (24.5-32.8)
[2020-08-25 08:37] LABS: CHLORIDE,CL 99 mmol/L (98-107); SODIUM,NA 139 mmol/L (136-145)
[2020-08-25] MEDS ORDERED: Lactated Ringers 1,000 ML IV ONE ×4 (08:45→09:15)
[2020-08-25] MEDS ORDERED: Potassium Chloride 20 MEQ Tab.ER PO ONE (08:46)
[2020-08-25] MEDS ORDERED: cefTRIAXone 2 GM Vial IVPUSH ONE (09:02)
[2020-08-25] MEDS ORDERED: Iopamidol 755 Mg/ML 100 ML Bottle ONE (09:14)
[2020-08-25] MEDS: Iopamidol 755 Mg/ML 100 ML Bottle IVPUSH ONE ×2 (09:25→14:57)
[2020-08-25] MEDS ORDERED: Acetaminophen 325 MG Tab PO PRN (12:00)
[2020-08-25] MEDS ORDERED: Enoxaparin 80 MG/0.8 ML Syringe SUBCUT SCH (12:00)
[2020-08-25] MEDS ORDERED: Cyclobenzaprine 10 MG Tab PO PRN (12:05)
[2020-08-25] MEDS ORDERED: GI Cocktail Oral Solution 30 ML PO ONE (12:06)
[2020-08-25] MEDS ORDERED: Enoxaparin 60 MG/0.6 ML Syringe SUBCUT SCH (12:15)
[2020-08-25] MEDS ORDERED: Pantoprazole 40 MG Vial IVPUSH ONE (15:24)
[2020-08-25 15:25] VITALS: BP 145/87; PULSE 86
[2020-08-25] MEDS ORDERED: Metoclopramide 10 MG/2 ML SDV IVPUSH ONE (15:25)
[2020-08-25] MEDS ORDERED: metroNIDAZOLE/Normal Saline 500 MG in Premix Bag 1 BAG IV ONE (15:34)
--- NOTE | 2020-08-25 15:53 | PCM.DCSUM1 ---
Discharge Summary - Hospital Course HPI Initial Comments: See emergency room note/admission H&P Brief History: See emergency room/mention H&P Diagnosis: Stroke: No Modified Steele Scale: No Symptoms at All Modified Steele Scale Score: 0 - Discharge Data Discharge Date: 08/25/20 Discharge Disposition: DC/Tfer to Acute Hospital 02 Condition: Fair - Referral to Home Health Primary Care Physician: Henrietta Varela NP - Discharge Diagnosis/Problem(s) (1) GI bleed SNOMED Code(s): 43936315 ICD Code: K92.2 - GASTROINTESTINAL HEMORRHAGE, UNSPECIFIED Status: Acute Priority: High Current Visit: Yes Onset Date: 08/25/20 Problem Details: Telephone consultation at 3:[address] Bernal, hospitalist at [facility], who does accept the patient for direct admission and probable emergent CT of the abdomen and pelvis immediately upon arrival in their facility, with no further treatment recommendations given. Sudden onset moderate amount of gross hematochezia and diarrhea at about 2:30 PM this afternoon with beginning moderate diffuse abdominal pain without nausea, emesis, etc.. Based on clinical findings probable lower GI bleed. High-dose IV Pepcid and IV Rocephin at already been given in the emergency room as per that note with additional IV Protonix and IV Flagyl given prior to patient's discharge. Stool has been collected for H. pylori antigen. Vital signs and clinical exam were stable at time of patient's transfer via ambulance with mill hand plate mill accompaniment. Continue IV fluids during transfer with no evidence of return hypotension, etc.. Subcu Lovenox has since been discontinued with only one initial dose given. Patient has not excessively used Maxalt in recent weeks as below. Note that initially patient did complain of some low back pain during later phases of her emergency room care, however did not mention that she also had abdominal pain at that time, with initial benign abdominal exam in the emergency room. Qualifiers: GI bleed type/associated pathology: unspecified gastrointestinal hemorrhage type Qualified Code(s): K92.2 - Gastrointestinal hemorrhage, unspecified (2) Chest pain SNOMED Code(s): 39364254 ICD Code: R07.9 - CHEST PAIN, UNSPECIFIED Status: Acute Priority: High Current Visit: Yes Onset Date: 08/25/20 Problem Details: Initial work-up for acute WI is negative, including cardiac enzymes x2. Note that chest pain not present on patient's arrival to our emergency room with no recurrence during her initial care. Chest pain protocol was initiated immediately upon patient's arrival, however. Cardiology consultation depending on her clinical course. Echocardiogram is advisable secondary to her history of recurrent syncope. Qualifiers: Chest pain type: precordial pain Qualified Code(s): R07.2 - Precordial pain (3) Near syncope SNOMED Code(s): 871199108 ICD Code: R55 - SYNCOPE AND COLLAPSE Status: Acute Priority: High Current Visit: Yes Onset Date: 08/25/20 Problem Details: Note aggressive hydration required during her initial emergency room care. The ER nurse did initiate a normal saline 1 L IV bolus prior to my arrival to this facility with manual blood pressures required for patient care. Normal saline changed to lactated Ringer's as below. Secondary to persistent hypotension patient did require a second peripheral IV access with initial IV bolus of LR x2 with a total of 2000 mL of IV fluids given prior to decreasing her LR to 100 cc/h. (4) Hypotension SNOMED Code(s): 70825981 ICD Code: I95.9 - HYPOTENSION, UNSPECIFIED Status: Acute Priority: High Current Visit: Yes Onset Date: 08/25/20 Problem Details: Vital signs and blood pressure improved with treatment in the emergency room and initial stages of this brief hospitalization. Note significant hypotension with secondary near syncope as per emergency room note with aggressive IV hydration as above. Manual blood pressure checks were required for accurate care initially. Qualifiers: Hypotension type: other hypotension type Qualified Code(s): I95.89 - Other hypotension (5) D-dimer, elevated SNOMED Code(s): 278447580 ICD Code: R79.89 - OTHER SPECIFIED ABNORMAL FINDINGS OF BLOOD CHEMISTRY Status: Acute Priority: High Current Visit: Yes Onset Date: 08/25/20 Problem Details: CTA of the chest results as per emergency room note. Apparently no evidence of dissecting thoracic aortic aneurysm, etc.. Note previous history of Covid infection as above with negative Covid test in this facility. Initiated subcu Lovenox therapy at VTE dose on admission, however this was discontinued secondary to probable GI bleed as above. Ultrasound is not available in this facility until 08/28/2020. Consider venous Doppler studies of the lower extremities by accepting providers once or cardiac and GI status have stabilized. (6) Lactic acid blood increased SNOMED Code(s): 562215015, 252476439 ICD Code: R79.89 - OTHER SPECIFIED ABNORMAL FINDINGS OF BLOOD CHEMISTRY Status: Acute Priority: High Current Visit: Yes Onset Date: 08/25/20 Problem Details: Blood cultures x2 were collected. Note initiation of high-dose IV Rocephin in the emergency room. Repeat lactic acid level was normal with no direct clinical evidence of sepsis at this time. (7) Asthma SNOMED Code(s): 636419272 ICD Code: J45.909 - UNSPECIFIED ASTHMA, UNCOMPLICATED Status: Chronic Priority: Medium Current Visit: Yes Problem Details: No recent fever or bronchitic type symptoms. Note previous Covid infection in February 2020 with subsequent J&J immunization in July 2020. Patient did get an influenza booster this season. Qualifiers: Asthma severity: mild Asthma persistence: intermittent Asthma complica tion type: uncomplicated Qualified Code(s): J45.20 - Mild intermittent asthma, uncomplicated (8) Elevated LFTs SNOMED Code(s): 328729935 ICD Code: R79.89 - OTHER SPECIFIED ABNORMAL FINDINGS OF BLOOD CHEMISTRY Status: Acute Priority: Medium Current Visit: Yes Onset Date: 08/25/20 Problem Details: Possibly secondary to fatty liver. Consider abdominal ultr asound, etc., although the patient will likely get a CT scan of the abdomen pelvis immediately upon arrival by accepting providers secondary to GI bleed as above. (9) Hypertension SNOMED Code(s): 16339681 ICD Code: I10 - ESSENTIAL (PRIMARY) HYPERTENSION Status: Chronic Priority: Medium Current Visit: Yes Problem Details: Previously under good control, however note significant hypotension during her initial emergency room care. Qualifiers: Hypertension type: essential hypertension Qualified Code(s): I10 - Essential (primary) hypertension (10) Hypokalemia SNOMED Code(s): 69924992 ICD Code: E87.6 - HYPOKALEMIA Status: Acute Priority: High Current Visit: Yes Onset Date: 08/25/20 Problem Details: Previous initiated normal saline IV bolus was discontinued after receiving blood test results with initiation of IV lactated Ringer's IV bolus x2 and additional oral potassium given both in the emergency room and during initial phases of this hospitalization. (11) Mixed anxiety depressive disorder SNOMED Code(s): 220044911 ICD Code: F41.8 - OTHER SPECIFIED ANXIETY DISORDERS Status: Chronic Priority: Medium Current Visit: Yes Problem Details: Stable by history (12) Osteoarthritis SNOMED Code(s): 943117187 ICD Code: M19.90 - UNSPECIFIED OSTEOARTHRITIS, UNSPECIFIED SITE Status: Chronic Priority: Medium Current Visit: Yes Problem Details: Stable by history with exception of persistent chronic low back pain and no known history of excessive NSAID use, etc. Qualifiers: Osteoarthritis location: multiple joints Osteoarthritis type: primary Qualified Code(s): M89.49 - Other hypertrophic osteoarthropathy, multiple sites (13) Peptic reflux disease SNOMED Code(s): 264331983 ICD Code: K21.9 - GASTRO-ESOPHAGEAL REFLUX DISEASE WITHOUT ESOPHAGITIS Status: Chronic Priority: Medium Current Visit: Yes Problem Details: No evidence of acute GI bleed during initial care in the emergency room with no significant abdominal complaints at that time. Note high-dose IV Pepcid given as GI prophylaxis in the ER with additional IV Protonix given prior to patient's transfer. (14) Hypothyroidism (acquired) SNOMED Code(s): 288359539 ICD Code: E03.9 - HYPOTHYROIDISM, UNSPECIFIED Status: Acute Priority: Medium Current Visit: Yes Onset Date: 08/25/20 Problem Details: Possible beginning mild hypothyroidism with mildly elevated TSH today. Consider low-dose supplementation and/for repeat TSH in 4 weeks by her regular providers (15) Migraine headache SNOMED Code(s): 68849915 ICD Code: G43.909 - MIGRAINE, UNSP, NOT INTRACTABLE, WITHOUT STATUS MIGRAINOSUS Status: Chronic Priority: Medium Current Visit: Yes Problem Details: Patient does have a history of migraine headaches with only a total of 3 tablets of Maxalt taken about 2-3 weeks ago with no recent use of this medication. Qualifiers: Migraine type: unspecified Status migrainosus presence: without status migrainosus Intractability: not intractable Qualified Code(s): G43.909 - Migraine, unspecified, not intractable, without status migrainosus - Patient Summary/Data Operative Procedure(s) Performed: None Complications: GI bleed as above Consults: Hospitalist as above Labs Pending at D/C: Blood cultures x2 Recommended Follow-up Testing/Procedures: As above, including GI consultation, etc. Planned Operative Procedure(s) after DC: Per accepting providers Hospital Course: The patient was placed in observation status on telemetry with initial negative work-up for acute WI as above. Note aggressive treatment for her initial hypotension in the emergency room with overall excellent results. Sudden development of probable lower GI bleed with gross hematochezia with aggressive medical therapy prior to transfer as above. Patient initially complained of diffuse 8/10 abdominal pain and cramping at time of gross hematochezia as above with improvement of patient's symptoms to 3/4 after IV Reglan, IV Flagyl, etc. were given prior to patient's transfer. Vital signs and clinical exam were stable at time of transfer. - Patient Instructions Diet: NPO Activity: Bedrest Driving: Do Not Drive Showering/Bathing: No Showering Notify Provider of: Fever, Increased Pain, Nausea and/or Vomiting Other/Special Instructions: Ambulance transfer with mill hand plate mill accompaniment to [facility] - Discharge Plan *PRESCRIPTION DRUG MONITORING PROGRAM REVIEWED*: Not Applicable *COPY OF PRESCRIPTION DRUG MONITORING REPORT IN PATIENT TIMUR: Not Applicable Home Medications: Home Meds Chlorthalidone 25 mg PO DAILY 09/26/16 [History] Cyclobenzaprine HCl 10 mg PO BEDTIME PRN 09/26/16 [History] Lisinopril 10 mg PO DAILY@20 09/26/16 [History] Amitriptyline HCl 75 mg PO BEDTIME 08/25/20 [History] Codeine/Butalbital/ASA/Caffein [Ascomp with Codeine] 1 each PO DAILY PRN 08/25/20 [History] DULoxetine HCl [Cymbalta] 60 mg PO DAILY 08/25/20 [History] Oxygen Therapy Mode: Room Air Forms: ED Department Discharge, Interfacility Transfer EMTALA Referrals: Henrietta Varela NP [Primary Care Provider] - - Discharge Summary/Plan Comment DC Time >30 min.: Yes (Coordination of care ) Discharge Summary/Plan Comment: As above. Extensive precautions were given to the patient, who is in agreement with the treatment plan. Ambulance transfer as above. - General Info Date of Service: 08/25/20 Admission Dx/Problem (Free Text: 1. Chest pain 2. Near syncopal episode with hypotension and history of hypertension 3. Lactic acid elevation 4. D-dimer elevation Subjective Update: New lower GI bleed as above Functional Status: Reports: Pain Controlled, New Symptoms (New GI bleed as ab ove) Numeric/FACES Score: 3 (Improved from initially 8/10) - Review of Systems General: Reports: Weakness (Mild nonspecific generalized). Denies: Fever, Malaise, Chills, Night Sweats, Appetite HEENT: Reports: No Symptoms Pulmonary: Reports: No Symptoms. Denies: Shortness of Breath, Pleuritic Chest Pain, Cough, Sputum, Wheezing Cardiovascular: Reports: No Symptoms. Denies: Chest Pain, Palpitations, Dyspnea on Exertion, Orthopnea, Edema, Lightheadedness Gastrointestinal: Reports: Abdominal Pain (Diffuse generalized abdominal cramping), Hematochezia. Denies: Decreased Appetite, Diarrhea, Difficulty Swallowing, Flatus, Melena, Nausea, Vomiting Genitourinary: Reports: No Symptoms. Denies: Dysuria, Frequency, Burning, Pain, Urgency, Incontinence, Hematuria, Retention, Flank Pain Musculoskeletal: Reports: Back Pain (Improved since admission). Denies: Neck Pain, Shoulder Pain, Arm Pain, Leg Pain Skin: Reports: No Symptoms. Denies: Pallor, Diaphoresis, Bruising Neurological: Reports: Weakness (Mild nonspecific generalized). Denies: Confusion, Dizziness (Resolved), Headache, Numbness, Paresthesia, Syncope, Tingling Psychiatric: Reports: No Symptoms. Denies: Confusion, Depression, Anxiety, Agitation, Cravings, Hallucinations - Patient Data Vitals - Most Recent: Last Vital Signs Temp 36.9 C 08/25/20 15:24 Pulse 86 08/25/20 15:24 Resp 16 08/25/20 15:24 BP 145/87 H 08/25/20 15:24 Pulse Ox 96 08/25/20 15:24 Vital Signs - 24 hr 08/25/20 08/25/20 08/25/20 07:56 08:00 08:05 Temperature [ Oral] Temperature [ 36.2 C 36.2 C Temporal] Pulse, 82 75 80 Peripheral [ Right Pulse Oximetry] Respiratory 15 16 18 Rate Blood Pressure 97/42 L 80/50 L 77/43 L [Left Upper Arm ] Blood Pressure [Right Upper Arm] O2 Sat by Pulse 99 95 96 Oximetry 08/25/20 08/25/20 08/25/20 08:15 08:30 08:45 Temperature [ Oral] Temperature [ Temporal] Pulse, 77 78 80 Peripheral [ Right Pulse Oximetry] Respiratory 16 16 17 Rate Blood Pressure 92/62 94/60 86/50 L [Left Upper Arm ] Blood Pressure [Right Upper Arm] O2 Sat by Pulse 99 99 99 Oximetry 08/25/20 08/25/20 08/25/20 09:00 09:15 09:30 Temperature [ Oral] Temperature [ Temporal] Pulse, 80 84 78 Peripheral [ Right Pulse Oximetry] Respiratory 19 18 17 Rate Blood Pressure 106/64 110/72 106/55 L [Left Upper Arm ] Blood Pressure [Right Upper Arm] O2 Sat by Pulse 100 100 100 Oximetry 08/25/20 08/25/20 08/25/20 09:45 10:14 10:30 Temperature [ Oral] Temperature [ Temporal] Pulse, 78 77 79 Peripheral [ Right Pulse Oximetry] Respiratory 16 18 17 Rate Blood Pressure 112/66 111/60 118/60 [Left Upper Arm ] Blood Pressure [Right Upper Arm] O2 Sat by Pulse 99 100 100 Oximetry 08/25/20 08/25/20 08/25/20 11:00 12:07 14:00 Temperature [ 36.8 C Oral] Temperature [ Temporal] Pulse, 81 80 Peripheral [ Right Pulse Oximetry] Respiratory 18 16 Rate Blood Pressure 111/74 [Left Upper Arm ] Blood Pressure 147/83 H [Right Upper Arm] O2 Sat by Pulse 100 100 99 Oximetry 08/25/20 15:24 Temperature [ 36.9 C Oral] Temperature [ Temporal] Pulse, 86 Peripheral [ Right Pulse Oximetry] Respiratory 16 Rate Blood Pressure [Left Upper Arm ] Blood Pressure 145/87 H [Right Upper Arm] O2 Sat by Pulse 96 Oximetry Vital Signs - 24 hr 08/25/20 08/25/20 08/25/20 07:56 08:00 08:05 Temperature [ Oral] Temperature [ 36.2 C 36.2 C Temporal] Pulse, 82 75 80 Peripheral [ Right Pulse Oximetry] Respiratory 15 16 18 Rate Blood Pressure 97/42 L 80/50 L 77/43 L [Left Upper Arm ] Blood Pressure [Right Upper Arm] O2 Sat by Pulse 99 95 96 Oximetry 08/25/20 08/25/20 08/25/20 08:15 08:30 08:45 Temperature [ Oral] Temperature [ Temporal] Pulse, 77 78 80 Peripheral [ Right Pulse Oximetry] Respiratory 16 16 17 Rate Blood Pressure 92/62 94/60 86/50 L [Left Upper Arm ] Blood Pressure [Right Upper Arm] O2 Sat by Pulse 99 99 99 Oximetry 08/25/20 08/25/20 08/25/20 09:00 09:15 09:30 Temperature [ Oral] Temperature [ Temporal] Pulse, 80 84 78 Peripheral [ Right Pulse Oximetry] Respiratory 19 18 17 Rate Blood Pressure 106/64 110/72 106/55 L [Left Upper Arm ] Blood Pressure [Right Upper Arm] O2 Sat by Pulse 100 100 100 Oximetry 08/25/20 08/25/20 08/25/20 09:45 10:14 10:30 Temperature [ Oral] Temperature [ Temporal] Pulse, 78 77 79 Peripheral [ Right Pulse Oximetry] Respiratory 16 18 17 Rate Blood Pressure 112/66 111/60 118/60 [Left Upper Arm ] Blood Pressure [Right Upper Arm] O2 Sat by Pulse 99 100 100 Oximetry 08/25/20 08/25/20 08/25/20 11:00 12:07 14:00 Temperature [ 36.8 C Oral] Temperature [ Temporal] Pulse, 81 80 Peripheral [ Right Pulse Oximetry] Respiratory 18 16 Rate Blood Pressure 111/74 [Left Upper Arm ] Blood Pressure 147/83 H [Right Upper Arm] O2 Sat by Pulse 100 100 99 Oximetry 08/25/20 15:24 Temperature [ 36.9 C Oral] Temperature [ Temporal] Pulse, 86 Peripheral [ Right Pulse Oximetry] Respiratory 16 Rate Blood Pressure [Left Upper Arm ] Blood Pressure 145/87 H [Right Upper Arm] O2 Sat by Pulse 96 Oximetry Weight - Most Recent: 80.195 kg I&O - Last 24 hours: Intake & Output 08/25/20 08/25/20 08/25/20 06:59 14:59 22:59 Intake Total 675 Balance 675 Imaging Impressions - Last 24 hrs: [employer] home theater shows normal sinus rhythm in the 80s to 90s with no ectopy or arrhythmia Acute abdominal x-ray shows moderate diffuse stool with mildly increased nonspecific bowel gaseous pattern with no free air, ileus, obstruction, etc. Right upper quadrant surgical clips consistent with laparoscopic cholecystectomy. 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 Chest x-ray, portable, shows mild to moderate pulmonary obstructive disease with no cardiomegaly, CHF, pulmonary infiltrates, pneumothorax, etc. Telephone consultation at 10:07 AM with the radiology department at [facility]. Preliminary verbal report of CTA of the chest using PE protocol was negative for PE with incidental finding of mild common bile duct dilatation likely secondary to her previous laparoscopic cholecystectomy. CT Results Date: 08/25/20 CT Results Time: 10:07 Lab Results - Last 24 hrs: Laboratory Results - last 24 hr 08/25/20 08/25/20 08/25/20 Range/Units 07:54 07:54 07:54 WBC 9.7 (4.0-10.2) K/uL RBC 4.93 (3.77-5.09) M/uL Hgb 15.6 H (11.7-15.5) g/dL Hct 43.7 (34.0-46.0) % MCV 88.6 D (84.0-98.0) fL MCH 31.6 (28.2-33.3) pg MCHC 35.7 (31.7-36.0) g/dL RDW 12.5 (11.2-14.1) % Plt Count 226 (150-350) K/uL Neut % (Auto) 68.9 (45.0-80.0) % Lymph % (Auto) 20.8 (10.0-50.0) % Nobles % (Auto) 7.3 (2.0-14.0) % Eos % (Auto) 2.4 (0.0-5.0) % Baso % (Auto) 0.6 (0.0-2.0) % Neut # (Auto) 6.65 (1.40-7.00) K/uL Lymph # (Auto) 2.01 (0.50-3.50) K/uL Nobles # (Auto) 0.71 (0.00-1.00) K/uL Eos # (Auto) 0.23 (0.00-0.50) K/uL Baso # (Auto) 0.06 (0.00-0.20) K/uL PT 10.0 (9.5-12.0) SEC INR 1.0 APTT 20.3 L (24.5-32.8) SEC D-Dimer, Quantitative > 5000 H (0-400) ng/mL Sodium (136-145) mmol/L Potassium (3.5-5.1) mmol/L Chloride (98-107) mmol/L Carbon Dioxide (21.0-32.0) mmol/L BUN (7-18) mg/dL Creatinine (0.51-1.17) mg/dL Est Cr Clr Drug Dosing Estimated GFR (MDRD) mL/min Glucose (70-99) mg/dL Lactic Acid (0.4-2.0) mmol/L Uric Acid (2.6-7.2) mg/dL Calcium (8.5-10.1) mg/dL Magnesium (1.8-2.4) mg/dL Total Bilirubin (0.2-1.0) mg/dL AST (15-37) U/L ALT (12-78) U/L Alkaline Phosphatase (46-116) IU/L Creatine Kinase (26-308) U/L Creatine Kinase Index (0.0-2.5) % CK-MB (CK-2) (0.00-3.60) ng/mL Troponin I (0.000-0.056) ng/mL NT-Pro-B Natriuret Pep (0-125) pg/mL Total Protein (6.4-8.2) g/dL Albumin (3.4-5.0) g/dL TSH, Ultra Sensitive (0.358-3.740) mIU/mL Specimen Type Urine Color Urine Appearance Urine pH (5.0-9.0) Ur Specific Moville (1.005-1.030) Urine Protein (NEGATIVE) mg/dL Urine Glucose (UA) (NEGATIVE) mg/dL Urine Ketones (NEGATIVE) mg/dL Urine Occult Blood (NEGATIVE) Urine Nitrite (NEGATIVE) Urine Bilirubin (NEGATIVE) Urine Urobilinogen (0.2-1.0) E.U./dL Ur Leukocyte Esterase (NEGATIVE) Urine RBC /HPF Urine WBC /HPF Ur Epithelial Cells /LPF Urine Bacteria (NONE TO FEW) /HPF SARS-CoV-2 RNA (STEVO) (NEGATIVE) 08/25/20 08/25/20 08/25/20 Range/Units 07:54 07:54 09:30 WBC (4.0-10.2) K/uL RBC (3.77-5.09) M/uL Hgb (11.7-15.5) g/dL Hct (34.0-46.0) % MCV (84.0-98.0) fL MCH (28.2-33.3) pg MCHC (31.7-36.0) g/dL RDW (11.2-14.1) % Plt Count (150-350) K/uL Neut % (Auto) (45.0-80.0) % Lymph % (Auto) (10.0-50.0) % Nobles % (Auto) (2.0-14.0) % Eos % (Auto) (0.0-5.0) % Baso % (Auto) (0.0-2.0) % Neut # (Auto) (1.40-7.00) K/uL Lymph # (Auto) (0.50-3.50) K/uL Nobles # (Auto) (0.00-1.00) K/uL Eos # (Auto) (0.00-0.50) K/uL Baso # (Auto) (0.00-0.20) K/uL PT (9.5-12.0) SEC INR APTT (24.5-32.8) SEC D-Dimer, Quantitative (0-400) ng/mL Sodium 139 (136-145) mmol/L Potassium 3.0 L (3.5-5.1) mmol/L Chloride 99 (98-107) mmol/L Carbon Dioxide 27.9 (21.0-32.0) mmol/L BUN 22 H (7-18) mg/dL Creatinine 1.09 (0.51-1.17) mg/dL Est Cr Clr Drug Dosing TNP Estimated GFR (MDRD) 51 mL/min Glucose 142 H (70-99) mg/dL Lactic Acid 3.1 H (0.4-2.0) mmol/L Uric Acid 7.1 (2.6-7.2) mg/dL Calcium 9.4 (8.5-10.1) mg/dL Magnesium 1.8 (1.8-2.4) mg/dL Total Bilirubin 0.8 (0.2-1.0) mg/dL AST 83 H (15-37) U/L ALT 82 H (12-78) U/L Alkaline Phosphatase 101 (46-116) IU/L Creatine Kinase 139 (26-308) U/L Creatine Kinase Index 1.2 (0.0-2.5) % CK-MB (CK-2) 1.60 (0.00-3.60) ng/mL Troponin I 0.000 (0.000-0.056) ng/mL NT-Pro-B Natriuret Pep 110 (0-125) pg/mL Total Protein 7.5 (6.4-8.2) g/dL Albumin 4.1 (3.4-5.0) g/dL TSH, Ultra Sensitive 5.228 H (0.358-3.740) mIU/mL Specimen Type Urine Color Urine Appearance Urine pH (5.0-9.0) Ur Specific Moville (1.005-1.030) Urine Protein (NEGATIVE) mg/dL Urine Glucose (UA) (NEGATIVE) mg/dL Urine Ketones (NEGATIVE) mg/dL Urine Occult Blood (NEGATIVE) Urine Nitrite (NEGATIVE) Urine Bilirubin (NEGATIVE) Urine Urobilinogen (0.2-1.0) E.U./dL Ur Leukocyte Esterase (NEGATIVE) Urine RBC /HPF Urine WBC /HPF Ur Epithelial Cells /LPF Urine Bacteria (NONE TO FEW) /HPF SARS-CoV-2 RNA (STEVO) Negative (NEGATIVE) 08/25/20 08/25/20 08/25/20 Range/Units 11:30 13:55 13:55 WBC (4.0-10.2) K/uL RBC (3.77-5.09) M/uL Hgb (11.7-15.5) g/dL Hct (34.0-46.0) % MCV (84.0-98.0) fL MCH (28.2-33.3) pg MCHC (31.7-36.0) g/dL RDW (11.2-14.1) % Plt Count (150-350) K/uL Neut % (Auto) (45.0-80.0) % Lymph % (Auto) (10.0-50.0) % Nobles % (Auto) (2.0-14.0) % Eos % (Auto) (0.0-5.0) % Baso % (Auto) (0.0-2.0) % Neut # (Auto) (1.40-7.00) K/uL Lymph # (Auto) (0.50-3.50) K/uL Nobles # (Auto) (0.00-1.00) K/uL Eos # (Auto) (0.00-0.50) K/uL Baso # (Auto) (0.00-0.20) K/uL PT (9.5-12.0) SEC INR APTT (24.5-32.8) SEC D-Dimer, Quantitative (0-400) ng/mL Sodium (136-145) mmol/L Potassium (3.5-5.1) mmol/L Chloride (98-107) mmol/L Carbon Dioxide (21.0-32.0) mmol/L BUN (7-18) mg/dL Creatinine (0.51-1.17) mg/dL Est Cr Clr Drug Dosing Estimated GFR (MDRD) mL/min Glucose (70-99) mg/dL Lactic Acid 1.2 (0.4-2.0) mmol/L Uric Acid (2.6-7.2) mg/dL Calcium (8.5-10.1) mg/dL Magnesium (1.8-2.4) mg/dL Total Bilirubin (0.2-1.0) mg/dL AST (15-37) U/L ALT (12-78) U/L Alkaline Phosphatase (46-116) IU/L Creatine Kinase 101 (26-308) U/L Creatine Kinase Index 1.6 (0.0-2.5) % CK-MB (CK-2) 1.60 (0.00-3.60) ng/mL Troponin I 0.002 (0.000-0.056) ng/mL NT-Pro-B Natriuret Pep (0-125) pg/mL Total Protein (6.4-8.2) g/dL Albumin (3.4-5.0) g/dL TSH, Ultra Sensitive (0.358-3.740) mIU/mL Specimen Type Urincc Urine Color Yellow Urine Appearance Clear Urine pH 7.0 (5.0-9.0) Ur Specific Mov[place] 1.010 (1.005-1.030) Urine Protein Negative (NEGATIVE) mg/dL Urine Glucose (UA) Negative (NEGATIVE) mg/dL Urine Ketones Negative (NEGATIVE) mg/dL Urine Occult Blood Negative (NEGATIVE) Urine Nitrite Negative (NEGATIVE) Urine Bilirubin Negative (NEGATIVE) Urine Urobilinogen 0.2 (0.2-1.0) E.U./dL Ur Leukocyte Esterase Negative (NEGATIVE) Urine RBC Not seen /HPF Urine WBC Not seen /HPF Ur Epithelial Cells Occasional /LPF Urine Bacteria Occasional (NONE TO FEW) /HPF SARS-CoV-2 RNA (STEVO) (NEGATIVE) Laboratory Tests 08/25/20 08/25/20 08/25/20 Range/Units 07:54 07:54 07:54 WBC 9.7 (4.0-10.2) K/uL RBC 4.93 (3.77-5.09) M/uL Hgb 15.6 H (11.7-15.5) g/dL Hct 43.7 (34.0-46.0) % MCV 88.6 D (84.0-98.0) fL MCH 31.6 (28.2-33.3) pg MCHC 35.7 (31.7-36.0) g/dL RDW 12.5 (11.2-14.1) % Plt Count 226 (150-350) K/uL Neut % (Auto) 68.9 (45.0-80.0) % Lymph % (Auto) 20.8 (10.0-50.0) % Nobles % (Auto) 7.3 (2.0-14.0) % Eos % (Auto) 2.4 (0.0-5.0) % Baso % (Auto) 0.6 (0.0-2.0) % Neut # (Auto) 6.65 (1.40-7.00) K/uL Lymph # (Auto) 2.01 (0.50-3.50) K/uL Nobles # (Auto) 0.71 (0.00-1.00) K/uL Eos # (Auto) 0.23 (0.00-0.50) K/uL Baso # (Auto) 0.06 (0.00-0.20) K/uL PT 10.0 (9.5-12.0) SEC INR 1.0 APTT 20.3 L (24.5-32.8) SEC D-Dimer, Quantitative > 5000 H (0-400) ng/mL Sodium (136-145) mmol/L Potassium (3.5-5.1) mmol/L Chloride (98-107) mmol/L Carbon Dioxide (21.0-32.0) mmol/L BUN (7-18) mg/dL Creatinine (0.51-1.17) mg/dL Est Cr Clr Drug Dosing Estimated GFR (MDRD) mL/min Glucose (70-99) mg/dL Lactic Acid (0.4-2.0) mmol/L Uric Acid (2.6-7.2) mg/dL Calcium (8.5-10.1) mg/dL Magnesium (1.8-2.4) mg/dL Total Bilirubin (0.2-1.0) mg/dL AST (15-37) U/L ALT (12-78) U/L Alkaline Phosphatase (46-116) IU/L Creatine Kinase (26-308) U/L Creatine Kinase Index (0.0-2.5) % CK-MB (CK-2) (0.00-3.60) ng/mL Troponin I (0.000-0.056) ng/mL NT-Pro-B Natriuret Pep (0-125) pg/mL Total Protein (6.4-8.2) g/dL Albumin (3.4-5.0) g/dL TSH, Ultra Sensitive (0.358-3.740) mIU/mL Specimen Type Urine Color Urine Appearance Urine pH (5.0-9.0) Ur Specific [place] (1.005-1.030) Urine Protein (NEGATIVE) mg/dL Urine Glucose (UA) (NEGATIVE) mg/dL Urine Ketones (NEGATIVE) mg/dL Urine Occult Blood (NEGATIVE) Urine Nitrite (NEGATIVE) Urine Bilirubin (NEGATIVE) Urine Urobilinogen (0.2-1.0) E.U./dL Ur Leukocyte Esterase (NEGATIVE) Urine RBC /HPF Urine WBC /HPF Ur Epithelial Cells /LPF Urine Bacteria (NONE TO FEW) /HPF SARS-CoV-2 RNA (STEVO) (NEGATIVE) 08/25/20 08/25/20 08/25/20 Range/Units 07:54 07:54 09:30 WBC (4.0-10.2) K/uL RBC (3.77-5.09) M/uL Hgb (11.7-15.5) g/dL Hct (34.0-46.0) % MCV (84.0-98.0) fL MCH (28.2-33.3) pg MCHC (31.7-36.0) g/dL RDW (11.2-14.1) % Plt Count (150-350) K/uL Neut % (Auto) (45.0-80.0) % Lymph % (Auto) (10.0-50.0) % Nobles % (Auto) (2.0-14.0) % Eos % (Auto) (0.0-5.0) % Baso % (Auto) (0.0-2.0) % Neut # (Auto) (1.40-7.00) K/uL Lymph # (Auto) (0.50-3.50) K/uL Nobles # (Auto) (0.00-1.00) K/uL Eos # (Auto) (0.00-0.50) K/uL Baso # (Auto) (0.00-0.20) K/uL PT (9.5-12.0) SEC INR APTT (24.5-32.8) SEC D-Dimer, Quantitative (0-400) ng/mL Sodium 139 (136-145) mmol/L Potassium 3.0 L (3.5-5.1) mmol/L Chloride 99 (98-107) mmol/L Carbon Dioxide 27.9 (21.0-32.0) mmol/L BUN 22 H (7-18) mg/dL Creatinine 1.09 (0.51-1.17) mg/dL Est Cr Clr Drug Dosing TNP Estimated GFR (MDRD) 51 mL/min Glucose 142 H (70-99) mg/dL Lactic Acid 3.1 H (0.4-2.0) mmol/L Uric Acid 7.1 (2.6-7.2) mg/dL Calcium 9.4 (8.5-10.1) mg/dL Magnesium 1.8 (1.8-2.4) mg/dL Total Bilirubin 0.8 (0.2-1.0) mg/dL AST 83 H (15-37) U/L ALT 82 H (12-78) U/L Alkaline Phosphatase 101 (46-116) IU/L Creatine Kinase 139 (26-308) U/L Creatine Kinase Index 1.2 (0.0-2.5) % CK-MB (CK-2) 1.60 (0.00-3.60) ng/mL Troponin I 0.000 (0.000-0.056) ng/mL NT-Pro-B Natriuret Pep 110 (0-125) pg/mL Total Protein 7.5 (6.4-8.2) g/dL Albumin 4.1 (3.4-5.0) g/dL TSH, Ultra Sensitive 5.228 H (0.358-3.740) mIU/mL Specimen Type Urine Color Urine Appearance Urine pH (5.0-9.0) Ur Specific [place] (1.005-1.030) Urine Protein (NEGATIVE) mg/dL Urine Glucose (UA) (NEGATIVE) mg/dL Urine Ketones (NEGATIVE) mg/dL Urine Occult Blood (NEGATIVE) Urine Nitrite (NEGATIVE) Urine Bilirubin (NEGATIVE) Urine Urobilinogen (0.2-1.0) E.U./dL Ur Leukocyte Esterase (NEGATIVE) Urine RBC /HPF Urine WBC /HPF Ur Epithelial Cells /LPF Urine Bacteria (NONE TO FEW) /HPF SARS-CoV-2 RNA (STEVO) Negative (NEGATIVE) 08/25/20 08/25/20 08/25/20 Range/Units 11:30 13:55 13:55 WBC (4.0-10.2) K/uL RBC (3.77-5.09) M/uL Hgb (11.7-15.5) g/dL Hct (34.0-46.0) % MCV (84.0-98.0) fL MCH (28.2-33.3) pg MCHC (31.7-36.0) g/dL RDW (11.2-14.1) % Plt Count (150-350) K/uL Neut % (Auto) (45.0-80.0) % Lymph % (Auto) (10.0-50.0) % Nobles % (Auto) (2.0-14.0) % Eos % (Auto) (0.0-5.0) % Baso % (Auto) (0.0-2.0) % Neut # (Auto) (1.40-7.00) K/uL Lymph # (Auto) (0.50-3.50) K/uL Nobles # (Auto) (0.00-1.00) K/uL Eos # (Auto) (0.00-0.50) K/uL Baso # (Auto) (0.00-0.20) K/uL PT (9.5-12.0) SEC INR APTT (24.5-32.8) SEC D-Dimer, Quantitative (0-400) ng/mL Sodium (136-145) mmol/L Potassium (3.5-5.1) mmol/L Chloride (98-107) mmol/L Carbon Dioxide (21.0-32.0) mmol/L BUN (7-18) mg/dL Creatinine (0.51-1.17) mg/dL Est Cr Clr Drug Dosing Estimated GFR (MDRD) mL/min Glucose (70-99) mg/dL Lactic Acid 1.2 (0.4-2.0) mmol/L Uric Acid (2.6-7.2) mg/dL Calcium (8.5-10.1) mg/dL Magnesium (1.8-2.4) mg/dL Total Bilirubin (0.2-1.0) mg/dL AST (15-37) U/L ALT (12-78) U/L Alkaline Phosphatase (46-116) IU/L Creatine Kinase 101 (26-308) U/L Creatine Kinase Index 1.6 (0.0-2.5) % CK-MB (CK-2) 1.60 (0.00-3.60) ng/mL Troponin I 0.002 (0.000-0.056) ng/mL NT-Pro-B Natriuret Pep (0-125) pg/mL Total Protein (6.4-8.2) g/dL Albumin (3.4-5.0) g/dL TSH, Ultra Sensitive (0.358-3.740) mIU/mL Specimen Type Urincc Urine Color Yellow Urine Appearance Clear Urine pH 7.0 (5.0-9.0) Ur Specific [place] 1.010 (1.005-1.030) Urine Protein Negative (NEGATIVE) mg/dL Urine Glucose (UA) Negative (NEGATIVE) mg/dL Urine Ketones Negative (NEGATIVE) mg/dL Urine Occult Blood Negative (NEGATIVE) Urine Nitrite Negative (NEGATIVE) Urine Bilirubin Negative (NEGATIVE) Urine Urobilinogen 0.2 (0.2-1.0) E.U./dL Ur Leukocyte Esterase Negative (NEGATIVE) Urine RBC Not seen /HPF Urine WBC Not seen /HPF Ur Epithelial Cells Occasional /LPF Urine Bacteria Occasional (NONE TO FEW) /HPF SARS-CoV-2 RNA (STEVO) (NEGATIVE) 08/25/20 Range/Units 15:40 WBC 9.9 (4.0-10.2) K/uL RBC 4.81 (3.77-5.09) M/uL Hgb 15.3 (11.7-15.5) g/dL Hct 43.2 (34.0-46.0) % MCV 89.8 (84.0-98.0) fL MCH 31.8 (28.2-33.3) pg MCHC 35.4 (31.7-36.0) g/dL RDW 12.7 (11.2-14.1) % Plt Count 161 (150-350) K/uL Neut % (Auto) 81.3 H (45.0-80.0) % Lymph % (Auto) 9.8 L (10.0-50.0) % Nobles % (Auto) 8.0 (2.0-14.0) % Eos % (Auto) 0.7 (0.0-5.0) % Baso % (Auto) 0.2 (0.0-2.0) % Neut # (Auto) 8.08 H (1.40-7.00) K/uL Lymph # (Auto) 0.97 (0.50-3.50) K/uL Nobles # (Auto) 0.80 (0.00-1.00) K/uL Eos # (Auto) 0.07 (0.00-0.50) K/uL Baso # (Auto) 0.02 (0.00-0.20) K/uL PT (9.5-12.0) SEC INR APTT (24.5-32.8) SEC D-Dimer, Quantitative (0-400) ng/mL Sodium (136-145) mmol/L Potassium (3.5-5.1) mmol/L Chloride (98-107) mmol/L Carbon Dioxide (21.0-32.0) mmol/L BUN (7-18) mg/dL Creatinine (0.51-1.17) mg/dL Est Cr Clr Drug Dosing Estimated GFR (MDRD) mL/min Glucose (70-99) mg/dL Lactic Acid (0.4-2.0) mmol/L Uric Acid (2.6-7.2) mg/dL Calcium (8.5-10.1) mg/dL Magnesium (1.8-2.4) mg/dL Total Bilirubin (0.2-1.0) mg/dL AST (15-37) U/L ALT (12-78) U/L Alkaline Phosphatase (46-116) IU/L Creatine Kinase (26-308) U/L Creatine Kinase Index (0.0-2.5) % CK-MB (CK-2) (0.00-3.60) ng/mL Troponin I (0.000-0.056) ng/mL NT-Pro-B Natriuret Pep (0-125) pg/mL Total Protein (6.4-8.2) g/dL Albumin (3.4-5.0) g/dL TSH, Ultra Sensitive (0.358-3.740) mIU/mL Specimen Type Urine Color Urine Appearance Urine pH (5.0-9.0) Ur Specific [place] (1.005-1.030) Urine Protein (NEGATIVE) mg/dL Urine Glucose (UA) (NEGATIVE) mg/dL Urine Ketones (NEGATIVE) mg/dL Urine Occult Blood (NEGATIVE) Urine Nitrite (NEGATIVE) Urine Bilirubin (NEGATIVE) Urine Urobilinogen (0.2-1.0) E.U./dL Ur Leukocyte Esterase (NEGATIVE) Urine RBC /HPF Urine WBC /HPF Ur Epithelial Cells /LPF Urine Bacteria (NONE TO FEW) /HPF SARS-CoV-2 RNA (STEVO) (NEGATIVE) Blood cultures x 2 collected Urine set up for culture and sensitivity Microbiology 08/25/20 15:05 Stool / Feces Stool Occult Blood (HERACLIO) - Final Hemoccult positive. Stool for H. pylori antigen pending. HERACLIO Results - Last 24 hrs: Microbiology 08/25/20 15:05 Stool Occult Blood (HERACLIO) - Final Stool / Feces Med Orders - Current: Current Medications Acetaminophen (Acetaminophen 325 Mg Tab) 650 mg PO Q4H PRN PRN Reason: Pain Amitriptyline HCl (Amitriptyline 25 Mg Tab) 75 mg PO BEDTIME KEVIN Cyclobenzaprine HCl (Cyclobenzaprine 10 Mg Tab) 10 mg PO BEDTIME PRN PRN Reason: Pain Duloxetine HCl (Duloxetine 30 Mg Cap) 60 mg PO DAILY KEVIN Lactated Ringer's (Ringers, Lactated) 1,000 mls @ 100 mls/hr IV .BOLUS ONE Stop: 08/25/20 19:14 Last Admin: 08/25/20 09:24 Dose: 100 mls/hr Documented by: Metronidazole 500 mg/ Premix 100 mls @ 100 mls/hr IV ONETIME ONE Stop: 08/25/20 16:33 Lisinopril (Lisinopril 10 Mg Tab) 10 mg PO DAILY@20 KEVIN Potassium Chloride (Potassium Chloride 20 Meq Tab.Er) 20 meq PO TID KEVIN Sodium Chloride (Sodium Chloride 0.9% 10 Ml Syringe) 10 ml FLUSH ASDIRECTED PRN PRN Reason: Keep Vein Open Last Admin: 08/25/20 08:35 Dose: 10 ml Documented by: Sodium Chloride (Sodium Chloride 0.9% 10 Ml Syringe) 10 ml FLUSH ASDIRECTED PRN PRN Reason: Keep Vein Open Sodium Chloride (Sodium Chloride 0.9% 10 Ml Syringe) 10 ml FLUSH Q12HR PRN PRN Reason: Keep Vein Open Discontinued Medications Al Hydroxide/Mg Hydroxide (Gi Cocktail Oral Solution 30 Ml) 30 ml PO ONETIME ONE Stop: 08/25/20 12:07 Last Admin: 08/25/20 12:41 Dose: 30 ml Documented by: Aspirin (Aspirin 81 Mg Tab.Chew) 324 mg CHEW ONETIME ONE Stop: 08/25/20 08:13 Last Admin: 08/25/20 08:28 Dose: 324 mg Documented by: Ceftriaxone Sodium (Ceftriaxone 2 Gm Vial) 2 gm IVPUSH ONETIME ONE Stop: 08/25/20 09:03 Last Admin: 08/25/20 09:09 Dose: 2 gm Documented by: Enoxaparin Sodium (Enoxaparin 80 Mg/0.8 Ml Syringe) 80 mg SUBCUT Q12H KEVIN Last Admin: 08/25/20 12:41 Dose: 80 mg Documented by: Enoxaparin Sodium (Enoxaparin 60 Mg/0.6 Ml Syringe) 60 mg SUBCUT Q24H KEVIN Famotidine (Famotidine 20 Mg/2 Ml Sdv) 40 mg IVPUSH ONETIME ONE Stop: 08/25/20 08:13 Last Admin: 08/25/20 08:29 Dose: 40 mg Documented by: Sodium Chloride (Normal Saline) 1,000 mls @ 999 mls/hr IV .BOLUS ONE Stop: 08/25/20 09:14 Last Admin: 08/25/20 08:10 Dose: 999 mls/hr Documented by: Lactated Ringer's (Ringers, Lactated) 1,000 mls @ 999 mls/hr IV .BOLUS ONE Stop: 08/25/20 09:45 Last Admin: 08/25/20 08:53 Dose: 999 mls/hr Documented by: Lactated Ringer's (Ringers, Lactated) 1,000 mls @ 999 mls/hr IV .BOLUS ONE Stop: 08/25/20 09:46 Last Admin: 08/25/20 08:54 Dose: 999 mls/hr Documented by: Lactated Ringer's (Ringers, Lactated) 1,000 mls @ 999 mls/hr IV .BOLUS ONE Stop: 08/25/20 10:15 Last Admin: 08/25/20 09:26 Dose: Not Given Documented by: Iopamidol (Iopamidol 755 Mg/Ml 100 Ml Bottle) 100 ml IVPUSH ONETIME ONE Stop: 08/25/20 13:01 Last Admin: 08/25/20 14:57 Dose: Not Given Documented by: Iopamidol (Iopamidol 755 Mg/Ml 100 Ml Bottle) Confirm Administered Dose 100 ml .ROUTE .STK-MED ONE Stop: 08/25/20 09:15 Last Admin: 08/25/20 14:57 Dose: Not Given Documented by: Metoclopramide HCl (Metoclopramide 10 Mg/2 Ml Sdv) 10 mg IVPUSH ONETIME ONE Stop: 08/25/20 15:26 Pantoprazole Sodium (Pantoprazole 40 Mg Vial) 40 mg IVPUSH ONETIME ONE Stop: 08/25/20 15:25 Potassium Chloride (Potassium Chloride 20 Meq Tab.Er) 40 meq PO ONETIME ONE Stop: 08/25/20 08:47 Last Admin: 08/25/20 08:55 Dose: 40 meq Documented by: Ticagrelor (Ticagrelor 90 Mg Tab) 180 mg PO ONETIME ONE Stop: 08/25/20 08:13 Last Admin: 08/25/20 08:28 Dose: 180 mg Documented by: - Exam Quality Assessment: Reports: DVT Prophylaxis (Lovenox, which was discontinued as above). Denies: Supplemental Oxygen, Central Line/PICC, Urine Catheter, Skin Breakdown, Restraints General: Reports: Alert, Oriented, Cooperative, No Acute Distress HEENT: Reports: Pupils Equal, Pupils Reactive, EOMI, Mucous Membr. Moist/[place]. Denies: Scleral Icterus Neck: Reports: Supple, Trachea Midline, No JVD, No Thyromegaly, +2 Carotid Pulse wo Bruit. Denies: Lymphadenopathy Lungs: Reports: Clear to Auscultation, Normal Respiratory Effort. Denies: Rub Cardiovascular: Reports: Regular Rate, Regular Rhythm, No Murmurs. Denies: Gallops, Rubs GI/Abdominal Exam: Normal Bowel Sounds, No Abnormal Bruit, No Mass, Tender (Mild diffuse palpation pain). No: No Distention, Guarding, Rigid, Rebound (Female) Exam: Deferred Rectal (Female) Exam: Deferred Back Exam: Reports: Full Range of Motion. Denies: CVA Tenderness (L), CVA Tenderness (R), Muscle Spasm, Paraspinal Tenderness, Vertebral Tenderness Extremities: Normal Inspection, Normal Range of Motion, Non-Tender, No Pedal Edema, Normal Capillary Refill. No: Jerad's Sign Skin: Reports: Warm, Dry, Intact. Denies: Ecchymosis Neurological: Reports: No New Focal Deficit, Other (No clinical orthostasis) Psy/Mental Status: Reports: Anxious (Mild), Depressed (Mild). Denies: Agitated, Hallucinations, Withdrawal Symptoms
[2020-08-25] MEDS ORDERED: Potassium Chloride 20 MEQ Tab.ER PO SCH (18:00)
[2020-08-25] MEDS ORDERED: Amitriptyline 25 MG Tab PO SCH (20:00)
[2020-08-25] MEDS ORDERED: Lisinopril 10 MG Tab PO SCH (20:00)
[2020-08-26] MEDS ORDERED: DULoxetine 30 MG Cap PO SCH (08:00)
== END 2020-08-25 17:15 ==
LOC: LL.ED 07:53 → LL.MS 11:30
PROVIDERS: ADMIT Family Medicine; ATTEND Family Medicine
DX: R55 Syncope and collapse (principal); K92.2 Gastrointestinal hemorrhage, unspecified; R07.2 Precordial pain; E03.9 Hypothyroidism, unspecified; I10 Essential (primary) hypertension; J44.9 Chronic obstructive pulmonary disease, unspecified; I95.89 Other hypotension; J45.20 Mild intermittent asthma, uncomplicated; R79.89 Other specified abnormal findings of blood chemistry; E87.6 Hypokalemia; Z79.899 Other long term (current) drug therapy; Z90.49 Acquired absence of other specified parts of digestive tract; Z87.891 Personal history of nicotine dependence; Z20.822 Contact with and (suspected) exposure to COVID-19
CPT/HCPCS: 36415; 71045; 71275; 74019; 80053; 81001; 82272; 82550; 82553; 83605; 83735; 83880; 84443; 84484; 84550; 85025; 85379; 85610; 85730; 87040; 87086; 87338; 93005; 93010; 96365; 96372; 96374; 96375; 99236; 99285-25; A9270-GY; C9113; G0378; J0696; J1650; J2765; J3490; J7030; J7120; Q9967; U0002

== ENCOUNTER 2021-01-25 08:01 | Day surgery (SDC) | payer BC ==
[~2021-01-25 08:01] MED LIST: Lactated Ringers 1,000 ML IV SCH; Midazolam 1 MG/ML 2 ML SDV ONE; Propofol 200 MG/20 ML SDV ONE; Sodium Chloride 0.9% 10 ML Syringe FLUSH PRN
[2021-01-25] MEDS ORDERED: Midazolam 1 MG/ML 2 ML SDV ONE (09:09)
[2021-01-25] MEDS ORDERED: Propofol 200 MG/20 ML SDV ONE ×2 (09:09→09:58)
--- NOTE | 2021-01-25 09:15 | PCM.HPR ---
H & P Addendum review - H & P Addendum Review Date of Original H & P: 01/18/21 Date Reviewed: 01/25/21 Time Reviewed: 09:05 Patient was Examined: No Changes
--- NOTE | 2021-01-25 09:52 | PCM.OPNOTE ---
- General Post-Op/Procedure Note Date of Surgery/Procedure: 01/25/21 Operative Procedure(s): Screening Findings: Normal Pre Op Diagnosis: Screening Post-Op Diagnosis: Same Anesthesia Technique: FERNANDO Primary Surgeon: Michael Ambrose Anesthesia Provider: Araceli Yepez Complications: None Condition: Good
[2021-01-25 15:21] VITALS: BP 122/71; PULSE 70
--- NOTE | 2021-01-26 09:17 | OR ---
Date of Procedure: 01/25/2021 PREOPERATIVE DIAGNOSIS: Colon screening. POSTOPERATIVE DIAGNOSIS: Normal colonoscopy. PROCEDURE: Colonoscopy. ANESTHESIA: IV sedation. PROCEDURE IN DETAIL: Patient was brought to the procedure room where she was placed on her left side and IV sedation administered. Digital rectal exam was performed, which was normal. Colonoscope was inserted and advanced to the level of the cecum with difficulty getting through the ascending colon, requiring pressure on the abdomen and changing to the supine position. I was then able to reach the cecum which was confirmed by identifying the appendiceal lumen and ileocecal valve. Prep was good and surfaces were well visualized. Upon withdrawing the scope, the ascending, transverse, and descending colon were normal in appearance. Sigmoid colon and rectum were normal. Retroflexion was normal. Air was removed and the scope withdrawn. Patient tolerated the procedure well and returned to recovery in stable condition. Recommend colon screening again in 10 years. No evidence of any colitis was present. She apparently had some colitis several months ago, which appears to be completely resolved. AMAN PERERA MD /[id number]
== END 2021-01-25 10:20 | disposition home or self-care (01) ==
LOC: LL.SDS 08:01
PROVIDERS: ATTEND Surgery
DX: Z12.11 Encounter for screening for malignant neoplasm of colon (principal); I10 Essential (primary) hypertension; F41.9 Anxiety disorder, unspecified; F32.9 Major depressive disorder, single episode, unspecified; K52.89 Other specified noninfective gastroenteritis and colitis; G43.109 Migraine with aura, not intractable, without status migrainosus; F17.210 Nicotine dependence, cigarettes, uncomplicated; Z79.899 Other long term (current) drug therapy; Z98.890 Other specified postprocedural states; Z87.891 Personal history of nicotine dependence
CPT/HCPCS: 00812; J2250; J2704; J7120

== ENCOUNTER 2023-10-21 12:23 | Emergency (ER) | payer MEDICARE ==
[2023-10-21] MEDS: Ondansetron 4 MG/2 ML SDV IVPUSH ONE (12:45)
[2023-10-21] MEDS: Sodium Chloride 0.9% 1,000 ML IV ONE (12:45)
[2023-10-21] MEDS: Sodium Chloride 0.9% 10 ML Syringe FLUSH PRN (12:46)
[2023-10-21 13:07] LABS: BASOPHILS ABSOLUTE AUTO 0.03 K/uL (0.00-0.20); BASOPHILS PERCENT AUTO 0.3 % (0.0-2.0); EOSINOPHILS ABSOLUTE AUTO 0.02 K/uL (0.00-0.50); EOSINOPHILS PERCENT AUTO 0.2 % (0.0-5.0); HEMATOCRIT 47.1 % (34.0-46.0); HEMOGLOBIN 17.3 g/dL (11.7-15.5); LYMPHOCYTES ABSOLUTE AUTO 1.68 K/uL (0.50-3.50); LYMPHOCYTES PERCENT AUTO 19.2 % (10.0-50.0); MEAN CORPUSCULAR HEMOGLOBIN 31.9 pg (28.2-33.3); MEAN CORPUSCULAR HGB CONC 36.7 g/dL (31.7-36.0); MEAN CORPUSCULAR VOLUME 86.7 fL (84.0-98.0); MONOCYTES ABSOLUTE AUTO 0.77 K/uL (0.00-1.00); MONOCYTES PERCENT AUTO 8.8 % (2.0-14.0); NEUTROPHILS ABSOLUTE AUTO 6.25 K/uL (1.40-7.00); NEUTROPHILS PERCENT AUTO 71.5 % (45.0-80.0); PLATELET COUNT,PLT 225 K/uL (150-350); RED BLOOD CELL COUNT 5.43 M/uL (3.77-5.09); RED CELL DISTRIBUTION WIDTH 12.7 % (11.2-14.1); WHITE BLOOD CELL COUNT,WBC 8.8 K/uL (4.0-10.2)
[2023-10-21 13:12] LABS: ALANINE AMINOTRANSFERASE,ALT 50 U/L (12-78); ALBUMIN 4.6 g/dL (3.4-5.0); ALKALINE PHOSPHATASE 101 IU/L (46-116); ASPARTATE AMNIOTRANSFERASE,AST 26 U/L (15-37); BILIRUBIN TOTAL 0.8 mg/dL (0.2-1.0); BLOOD UREA NITROGEN,BUN 20 mg/dL (7-18); CALCIUM 10.3 mg/dL (8.5-10.1); CARBON DIOXIDE,CO2 27.7 mmol/L (21.0-32.0); CHLORIDE,CL 95 mmol/L (98-107); CREATININE 1.16 mg/dL (0.51-1.17); GLUCOSE RANDOM 121 mg/dL (70-99); POTASSIUM,K 3.2 mmol/L (3.5-5.1); PROTEIN TOTAL,TP 8.4 g/dL (6.4-8.2); SODIUM,NA 140 mmol/L (136-145)
[2023-10-21 13:14] LABS: AMYLASE 34 U/L (25-115); ANION GAP 20.5 meq/L (7-15); ESTIMATED GFR 52 mL/min (>=60); LIPASE 37 U/L (16-77)
[2023-10-21] MEDS: Dicyclomine 20 MG Tab PO STA (14:36)
[2023-10-21] MEDS: LORazepam 2 MG/ML SDV IVPUSH ONE (14:37)
[2023-10-21 15:42] VITALS: BP 112/84; PULSE 81
== END 2023-10-21 15:44 | disposition home or self-care (01) ==
LOC: LL.ED 12:23
DX: R10.84 Generalized abdominal pain (principal); F41.9 Anxiety disorder, unspecified; I10 Essential (primary) hypertension; K21.9 Gastro-esophageal reflux disease without esophagitis; Z86.16 Personal history of COVID-19; Z79.899 Other long term (current) drug therapy
CPT/HCPCS: 36415; 74019; 80053; 82150; 83690; 85025; 96361; 96374; 96375; 99284; 99284-25; A9270-GY; J2060; J2405; J3490; J7030; U0002